=== PATIENT | male | born 1955 | race Caucasian/White ===

== ENCOUNTER → 2018-09-05 | Outpatient (REF) ==
[2017-07-20 17:00] VITALS: BMI 47.3
[~2018-09-05] MED LIST: ALLO-119 PO; ASPI-757 PO; ATEN-1 PO; CHOL10005 PO; CITA-145 PO; CITA-157 PO; CLON-331 PO; CYCL10TA29 PO; DOCU-202 PO; DOXY-229 PO; DOXY50SY2 PO; FAMO-67 PO; FURO-45 PO; FURO-47 PO; GABA-549 PO; GLY5 FT; GLY5 PO; HYDR-2966 PO; HYDR25TA66 PO; IBUP-136 PO; INSU100I30 SUBQ; LISI-362 PO; LOR1 PO; LOR5/325 PO; METF-450 PO; METF-452 PO; METO100T20 PO; METO50TA19 PO; NAPR220C12 PO; ONDA-2 PO; SIMV-49 PO; TRAM-420 PO; ZOLP-350 PO; [UNRECOGNIZED DRUG - CODE] IJ; [UNRECOGNIZED DRUG - CODE] PO
== END ==
LOC: US 01:00
PROVIDERS: ATTEND Nurse Practitioner
DX: I51.7 Cardiomegaly (principal)
CPT/HCPCS: 93306

== ENCOUNTER 2018-09-12 13:25 | Outpatient (RCR) ==
[2017-07-20 17:00] VITALS: Ht 182.9 cm; Wt 182.3 kg
[~2018-09-12] VITALS: Ht 182.9 cm; Wt 182.3 kg
--- NOTE | 2018-09-13 10:48 | Medical Nutrition Therapy ---
Nutrition Anthropometrics Height (Inches): 72 Weight (Pounds): 402 BMI: 54.5 Hemal Nutrition Score: Hemal Nutrition Risk Score: Dietary Referral Nutrition Risk Factors: Non-Healing Wound Nutrition Risk Comment: Nutrition/Food History has not been following any diet for his diet- trying to 'watch' carbs Breakfast: coffee creamer, 2 sausage mc muffin or cereal/ 12 oz milk Lunch: hungery man TV dinner or meat, 1c starch, vegg, 12oz milk Dinner: meat, salad, 12 oz milk Snacks: 2 pc fruit Nutritional Education Nutrition Education Topic: Diabetic Nutrition Learning Readiness: Interested Teaching Methods: Discussion, Handout, Demonstration Response to Teaching: Verbalize understanding, Reinforcement needed Teaching Recipient: Patient Nutrition Counseling: late entry for 09/12: Discussed diabetes distress and pt's issues with diabetes. Pt states interested in information on portion control. Discussed glycemic response to CHO and action of insulin with meal intake vs basal insulin. Discussed CHO counting and plate method. Pt not interested in CHO counting and feels portion control is his main issue at this time. Provided meal plan using plate method. Pt will eat unlimited non-starchy veg and lean meats. Pt will try to limit dairy, starchy foods, fruits to 2- 2 1/2c/meal. Informed pt that this is a starting point and he may need a larger serving size r/t to his body size but since he desires wt loss, went with a smaller portion size. Pt needed to leave d/t another appointment but set f/u time 09/26 where we will set up behavoural goals, support plan, and schedule classes. Nutrition Monitoring & Eval RD Patient Assessment Time: 60 minutes Nutritional Comment: Provided 60 minutes of diabetes education focusing on diabetes distress and nutrition. Copies To Copies to: [facility] ; MARIA DEL CARMEN GUERRERO Sep 13, 2018 10:48
--- NOTE | 2018-09-27 19:07 | Medical Nutrition Therapy ---
Nutrition Anthropometrics Height (Inches): 72 Weight (Pounds): 402 BMI: 54.5 Hemal Nutrition Score: Hemal Nutrition Risk Score: Dietary Referral Nutrition Risk Factors: Non-Healing Wound Nutrition Risk Comment: Nutritional Education Nutrition Education Topic: Diabetic Nutrition Learning Readiness: Interested Teaching Methods: Discussion, Handout Response to Teaching: Verbalize understanding Teaching Recipient: Patient Nutrition Counseling: Pt has been following plate method diet and states it has been working fairly well for him. Reviewed portion control and reviewed foods that increase Bg and foods that don't. pt set up support plan and made initial behavioural goal of lowering A1C to 7 from current 9 within a year. this will be achieved by limining CH to 2c/meal and increaing veg and protein portions. Pt will attend core stengthening claseses 3X/week. Pt will exercise by walking 5 minute 3X/day. Discussed how wt loss will also help with achieving goal. Pt set up for classes on 10/11. Nutrition Monitoring & Eval RD Patient Assessment Time: [address] Assessment Type: RD Education Nutritional Comment: Provided 30 minutes of diabetes education focusing on nutrition, support plan and behavioural goals. Copies To Copies to: [facility]; ALEJANDRINA SMITH MD ; MARIA DEL CARMEN GUERRERO Sep 27, 2018 19:07
--- NOTE | 2018-10-11 20:54 | Medical Nutrition Therapy ---
Nutrition Anthropometrics Height (Inches): 72 Weight (Pounds): 402 BMI: 54.5 Hemal Nutrition Score: Hemal Nutrition Risk Score: Dietary Referral Nutrition Risk Factors: Non-Healing Wound Nutrition Risk Comment: Physical Findings Physical Appearance: Morbidly Obese 40+ Skin Appearance Skin Appearance: Edema Edema Location Modifier: Edema Location: Type of Edema: Degree of Edema: Gastrointestinal Symptoms GI Symtoms: Tube Present: Bowel Sounds: Recent Bowel Pattern: Stool Characteristics: Nutritional Education Nutrition Education Topic: Other Learning Barriers: Hx Of Non-Compliance Learning Readiness: Eager, Interested Teaching Methods: Discussion, Handout, Demonstration, Audiovisual Response to Teaching: Return demonstration Teaching Recipient: Patient Nutrition Monitoring & Eval RD Patient Assessment Time: [address] Assessment Type: RD Education Nutritional Comment: Provided 30 minutes of diabetes education focusing on nutrition, support plan and behavioural goals. 10/11/18 Pt diagnosed with T2DM approximately 10 years ago. States that A1c several months ago was 14%, but now has normalized. Pt instructed on Living with Diabetes topics including foot care, emt intermediate complications, exercise, hypoglycemia, sick day care, etc. Pt appears interested in diabetes topics and able to answer questions regarding topics covered. I personally spent a total of 90 minutes educating/counseling patient regarding diabetes self-management in a group setting. See education section and my note above for details. TAD JOHNSON Oct 11, 2018 20:54
--- NOTE | 2018-10-12 12:13 | Medical Nutrition Therapy ---
Nutritional Education Nutrition Education Topic: Diabetic Nutrition Learning Readiness: Interested Teaching Methods: Discussion, Handout, Demonstration Response to Teaching: Verbalize understanding Teaching Recipient: Patient Nutrition Counseling: Provided diabetic education in group setting focusing on nutrition. Reviewed role of CHO, protein and fat. Glycemic response to CHO and Glycemic index. Reviewed carb counting, plate method. Discussed pros/cons of alternative acceptable diets like Mediterranean, Weight Watchers, Atkins that could be discussed in more detail with individuals upon request. Reviewed Heart healthy diet. Reviewed reading labels. Discussed alcohol effects on diabetes and recommended limits. Discussed eating out and controlling BG. Nutrition Monitoring & Eval RD Patient Assessment Time: [address] Assessment Type: RD Education Nutritional Comment: Provided 60 minutes of diabetes education in a group setting focusing on nutrition Copies To Copies to: [facility] ; MARIA DEL CARMEN GUERRERO Oct 12, 2018 12:13
--- NOTE | 2018-10-12 12:17 | Medical Nutrition Therapy ---
Nutrition Monitoring & Eval RD Patient Assessment Time: [address] Assessment Type: RD Education Nutritional Comment: Note provided by Kalie Garcia: 10/11/18 Pt diagnosed with T2DM approximately 10 years ago. States that A1c several months ago was 14%, but now has normalized. Pt instructed on Living with Diabetes topics including foot care, superintendent container terminal complications, exercise, hypoglycemia, sick day care, etc. Pt appears interested in diabetes topics and able to answer questions regarding topics covered. Copies To Copies to: [facility] ; MARIA DEL CARMEN GUERRERO Oct 12, 2018 12:17
== END 2018-10-17 ==
LOC: DIET 13:25
PROVIDERS: ATTEND Internal Medicine Rheumatology
DX: E11.65 Type 2 diabetes mellitus with hyperglycemia (principal)
CPT/HCPCS: G0108; G0109

== ENCOUNTER 2018-10-26 15:10 | Outpatient (RCR) ==
[2017-07-20 17:00] VITALS: BMI 47.3
--- NOTE | 2018-10-26 16:22 | Medical Nutrition Therapy ---
Nutritional Education Nutrition Education Topic: Diabetic Nutrition Learning Readiness: Interested Teaching Methods: Discussion, Demonstration Response to Teaching: Verbalize understanding Teaching Recipient: Patient Nutrition Counselin Month follow-up. Pt has achied 2 out of his 3 task to help him with is goal of an A1C of 7. He is taking core strengthing classes 3 X/week. He increased his exercise more than his original goal by walking 5 min 3-4X/day. He has increased his veg and protein but is having difficulties cutting back on CHO and he hasn't been counting fruit as a CHO. Increased his CHO/meal to 3c but that will include his fruit. Pt states BG is 100-120 before meals and 150-160s after meal. Will cont with quarterly phone calls and f/u sessions as needed. Nutrition Monitoring & Eval RD Patient Assessment Time: [address] Assessment Type: RD Education Nutritional Comment: Provided 45 minutes diabetic follow-up. Copies To Copies to: [facility]; ALEJANDRINA SMITH MD ; MARIA DEL CARMEN GUERRERO Oct 26, 2018 16:22
== END 2018-11-30 ==
LOC: DIET 15:10
PROVIDERS: ATTEND Internal Medicine Rheumatology
DX: E11.9 Type 2 diabetes mellitus without complications (principal); R73.9 Hyperglycemia, unspecified
CPT/HCPCS: G0108

== ENCOUNTER 2019-01-14 17:28 | Emergency (ER) | payer SELFPAY ==
[2017-07-20 17:00] VITALS: Wt 190.5 kg
[~2019-01-14 17:28] MED LIST changes: -INSU100V24 SQ; -LISI20TA29 PO; -ONDA4TAB97 PO; -Tamsulosin Hcl PO; -VENL150C3 PO
--- NOTE | 2019-01-14 18:00 | ER Report ---
History and Physical Time Seen By MD: 18:00 Hx. of Stated Complaint: Pt. is currently dizzy. Also having diarrhea, and some bowel incontinence. Chronic wound on left ankle/foot. Known by wound care team at [facility]. Per EMS, BPs 200's/100's, BG 268 HPI/ROS CHIEF COMPLAINT: Dizziness, fever HISTORY OF PRESENT ILLNESS: 63-year-old type II diabetic, insulin-dependent brought in by EMS from home with dizziness( like going to pass out) and weakness. Patient's unable to care for himself anymore. Patient states she's been incontinent of stool/diarrhea 8 times in the last 24 hours. Wounds are being cared for by wound care clinic. She states his glucoses have been out of control for the last several days. Patient reports 2 courses of antibiotics for sinus infection and right ear infection which she finished. Patient notes fever today. He has a productive cough. Patient denies dysuria. Patient admits she's been confused and disoriented forgot to take his oral diabetic medication this morning. Patient divides his insulin into 4 separate doses throughout the day. He states beside taking his insulin. His glucoses have remained quite high over 400. Patient is O2 dependent wears 1 L at night and when he takes naps during the daytime. Patient's legs are notably soiled with stool. Patient states he followed by Dr. Corona at [facility] [place]. Patient describes his dizziness as the near-syncope sensation. EMS field stick glucose was 270. Patient is a large dressing over the medial aspect of his left great toe. REVIEW OF SYSTEMS: Respiratory: No cough, no dyspnea. Cardiovascular: No chest pain, no palpitations. Gastrointestinal: No vomiting, no abdominal pain. Musculoskeletal: No back pain. Allergies: Coded Allergies: Penicillins (Verified Allergy, Mild, Rash, 01/14/19) 07/12/17: Pt reports developing a rash with PCN, but has taken PCN and tolerated it as recently as 2016. Sulfa (Sulfonamide Antibiotics) (Verified Allergy, Mild, 01/14/19) Home Meds Active Scripts Hydrocodone Bit/Acetaminophen (HYDROCODON-ACETAMINOPHEN 5-325) 1 Each Tablet, 1 EACH PO Q4-6H PRN for PAIN, #12 TAKE ONE TABLET BY MOUTH EVERY 4-6 HOURS NEEDED FOR PAIN Prov:MICA COLLINS DO 01/14/19 Ondansetron Hcl (ZOFRAN) 4 Mg Tablet, 4 MG PO Q6H PRN for NAUSEA/VOMITING, #12 Prov:KARINAMICA Enoc DO 01/14/19 Insulin Glargine 100 Un/Ml Pen (LANTUS SOLOSTAR PEN) 100 Unit/1 Ml Insuln.pen, 20 UNIT SUBQ QDAY for diabetes, #1 BOX 3 Refills Prov:CHINA NATARJAAN MD 08/29/17 Cyclobenzaprine Hcl (CYCLOBENZAPRINE HCL) 10 Mg Tablet, 10 MG PO BID PRN for MUSCLE SPASMS, #60 TAB Prov:CHINA NATARAJAN MD 08/29/17 Gabapentin (GABAPENTIN) 300 Mg Capsule, 300 MG PO DIRECTED, #120 CAPSULE Take one capsule in the am and one capsule midday. Take 2 capsules at HS. Prov:CHINA NATARAJAN MD 08/29/17 Allopurinol (ZYLOPRIM) 300 Mg Tablet, 300 MG PO QDAY, #0 TAB TAKE 1 TABLET BY MOUTH EVERY DAY Prov:CHINA NATARAJAN MD 01/23/15 Reported Medications Cholecalciferol (Vitamin D3) (VITAMIN D3) 1,000 Unit Tablet, 1000 UNIT PO DAILY, TAB 07/11/17 Hydralazine Hcl (HYDRALAZINE HCL) 25 Mg Tablet, 25 MG PO BID, TAB 07/11/17 Citalopram Hydrobromide (CITALOPRAM HBR) 20 Mg Tablet, 20 MG PO QDAY, #5 TAB 07/11/17 Glyburide (GLYBURIDE) 5 Mg Tab, 10 MG PO BID, TAB 07/11/17 Simvastatin (SIMVASTATIN) 20 Mg Tablet, 20 MG PO HS, TAB 01/23/15 Aspirin (ASPIRIN) 325 Mg Tablet, 325 MG PO DAILY, TAB 01/23/15 Lisinopril (LISINOPRIL) 10 Mg Tablet, 10 MG PO QDAY 01/23/15 Discontinued Reported Medications Famotidine (FAMOTIDINE) 20 Mg Tablet, 20 MG PO QDAY, TAB 05/10/17 Discontinued Scripts Hydrocodone Bit/Acetaminophen (HYDROCODON-ACETAMINOPHEN 5-325) 1 Each Tablet, 1- 2 EACH PO Q4H PRN for PAIN, #20 TAB Prov:CHINA NATARAJAN MD 08/29/17 Docusate Sodium (DOCUSATE SODIUM) 100 Mg Capsule, 100 MG PO BID, #60 CAPSULE Prov:CHINA NATARAJAN MD 08/29/17 Past Medical/Surgical History (1) Diabetic Charcot foot Status: Chronic (2) Hx MRSA infection Status: Resolved (3) Diabetic foot ulcer Status: Chronic (4) Neuropathy Status: Chronic (5) Type 2 diabetes mellitus Status: Chronic (6) Depression with anxiety Status: Chronic (7) Hyperlipidemia Status: Chronic (8) Gout Status: Chronic Reviewed Nurses Notes: Yes Old Medical Records Reviewed: Yes Hx Smoking: No Smoking Status: Never Smoker Hx Substance Use Disorder: No Hx Alcohol Use: No Constitutional Vital Sign - Last 24 Hours 01/14/19 01/14/19 01/14/19 01/14/19 17:33 17:43 17:58 18:00 Temp 98.9 Pulse 90 83 96 Resp 20 31 17 B/P (MAP) 179/92 179/92 (121) 167/100 (122) Pulse Ox 86 91 O2 Delivery Room Air 01/14/19 01/14/19 01/14/19 01/14/19 18:13 18:36 18:43 18:58 Pulse 81 79 87 Resp 17 26 76 B/P (MAP) 176/80 (112) Pulse Ox 91 90 91 01/14/19 01/14/19 01/14/19 01/14/19 19:13 19:18 19:30 19:33 Pulse 80 82 ??? Resp 58 53 22 B/P (MAP) 165/67 (99) Pulse Ox 94 84 90 01/14/19 01/14/19 01/14/19 01/14/19 19:38 19:48 20:00 20:03 Pulse 86 82 Resp 26 132 B/P (MAP) 162/65 (97) Pulse Ox 88 94 O2 Flow Rate 2.0 01/14/19 01/14/19 01/14/19 20:18 20:33 20:38 Pulse 86 159 111 Pulse Ox 88 82 84 Physical Exam Auto signs stable, pulse ox 86% on room air. Patient wears 1 L supplemental O2 at night. Patient on 2 L to maintain saturations in the low 90s, afebrile General Appearance: The patient is alert, has no immediate need for airway protection and no current signs of toxicity. Alert and oriented 3. Notes mental fogginess but answers questions appropriately HEENT: Pupils equal and round no injection. Oropharynx without redness or exudate, mucous members are moist Respiratory: Chest is non tender, lungs are clear to auscultation. No wheezing or rails Cardiac: regular rate and rhythm, distant heart sounds Gastrointestinal: Abdomen is soft and non tender, no masses, bowel sounds normal. Musculoskeletal: Neck: Neck is supple and non tender. No lymphadenopathy Extremities have full range of motion and are non tender. Lower extremities are soiled with retained stool from incontinence of diarrhea, examination of his chr onic wound on the medial aspect of the 1st metatarsal. There is a large ulcer that is approximately 2-3 cm in diameter. There is good granulation tissue at the base. There is no signs of infection. There is some tissue around the periphery that could potentially be debrided. Wound care. Can proceed with that in the future. Skin: No rashes or lesions. DIFFERENTIAL DIAGNOSIS: After history and physical exam differential diagnosis was considered for altered mental status including but not limited to hypoglycemia, infectious process, electrolyte abnormality, head injury and intoxicants. Additionally,adult fever including but not limited to viral syndromes including influenza, urinary tract infection, pneumonia and sepsis. Medical Decision Making Data Points Result Diagram: 01/14/19184601/14/191846 Laboratory Hematology Test 01/14/19 18:47 01/14/19 18:53 Red Blood Count 5.35 M/uL (4.00-5.60) Mean Corpuscular Volume 85.1 fL (80.0-96.0) Mean Corpuscular Hemoglobin 27.9 pg (26.0-33.0) Mean Corpuscular Hemoglobin Concent 32.8 g/dL (32.0-36.0) Red Cell Distribution Width 15.5 % (11.5-14.5) Mean Platelet Volume 7.4 fL (7.2-11.1) Neutrophils (%) (Auto) 51.4 % (39.4-72.5) Lymphocytes (%) (Auto) 35.3 % (17.6-49.6) Monocytes (%) (Auto) 11.1 % (4.1-12.4) Eosinophils (%) (Auto) 1.7 % (0.4-6.7) Basophils (%) (Auto) 0.5 % (0.3-1.4) Nucleated RBC Relative Count (auto) 0.2 /100WBC Neutrophils # (Auto) 2.7 K/uL (2.0-7.4) Lymphocytes # (Auto) 1.8 K/uL (1.3-3.6) Monocytes # (Auto) 0.6 K/uL (0.3-1.0) Eosinophils # (Auto) 0.1 K/uL (0.0-0.5) Basophils # (Auto) 0.0 K/uL (0.0-0.1) Nucleated RBC Absolute Count (auto) 0.01 K/uL Sodium Level 136 mmol/L (137-145) Potassium Level 4.7 mmol/L (3.5-5.0) Chloride Level 102 mmol/L (98-107) Carbon Dioxide Level 24 mmol/L (22-30) Blood Urea Nitrogen 29 mg/dl (9-21) Creatinine 0.80 mg/dl (0.66-1.25) Glomerular Filtration Rate Calc > 60.0 Random Glucose 284 mg/dl (75-110) Lactate 1.7 mmol/L (0.7-2.1) Calcium Level 8.9 mg/dl (8.4-10.2) Total Bilirubin 0.5 mg/dl (0.2-1.3) Aspartate Amino Transf (AST/SGOT) 55 U/L (0-35) Alanine Aminotransferase (ALT/SGPT) 41 U/L (0-56) Alkaline Phosphatase 122 U/L (0-126) C-Reactive Protein 0.6 mg/dl (<1.0) Total Protein 7.0 g/dl (6.3-8.2) Albumin 4.1 g/dl (3.5-5.0) Acetone, Qualitative Negative Influenza Virus Type A (PCR) Negative (NEGATIVE) Influenza Virus Type B (PCR) Negative (NEGATIVE) Urine Color Yellow Urine Clarity Clear Urine pH 6.0 pH (4.8-9.5) Urine Specific [place] 1.022 Urine Protein Negative mg/dL (NEGATIVE) Urine Glucose (UA) 500 mg/dL (NEGATIVE) Urine Ketones Negative mg/dL (NEGATIVE) Urine Blood Negative (NEGATIVE) Urine Nitrite Negative (NEGATIVE) Urine Bilirubin Negative (NEGATIVE) Urine Urobilinogen Negative mg/dL (0.2-1.9) Urine Leukocyte Esterase Negative (NEGATIVE) Urine RBC <1 /HPF (0-2/HPF) Urine WBC <1 /HPF (0-5/HPF) Urine Squamous Epithelial Cells None /LPF (</=FEW) Urine Bacteria Negative /HPF (NONE-FEW) Urine Mucus None /HPF (NONE-FEW) Chemistry Test 01/14/19 18:47 01/14/19 18:53 White Blood Count 5.2 k/uL (4.5-11.0) Red Blood Count 5.35 M/uL (4.00-5.60) Hemoglobin 15.0 g/dL (14.0-18.0) Hematocrit 45.5 % (42.0-52.0) Mean Corpuscular Volume 85.1 fL (80.0-96.0) Mean Corpuscular Hemoglobin 27.9 pg (26.0-33.0) Mean Corpuscular Hemoglobin Concent 32.8 g/dL (32.0-36.0) Red Cell Distribution Width 15.5 % (11.5-14.5) Platelet Count 142 K/uL (150-450) Mean Platelet Volume 7.4 fL (7.2-11.1) Neutrophils (%) (Auto) 51.4 % (39.4-72.5) Lymphocytes (%) (Auto) 35.3 % (17.6-49.6) Monocytes (%) (Auto) 11.1 % (4.1-12.4) Eosinophils (%) (Auto) 1.7 % (0.4-6.7) Basophils (%) (Auto) 0.5 % (0.3-1.4) Nucleated RBC Relative Count (auto) 0.2 /100WBC Neutrophils # (Auto) 2.7 K/uL (2.0-7.4) Lymphocytes # (Auto) 1.8 K/uL (1.3-3.6) Monocytes # (Auto) 0.6 K/uL (0.3-1.0) Eosinophils # (Auto) 0.1 K/uL (0.0-0.5) Basophils # (Auto) 0.0 K/uL (0.0-0.1) Nucleated RBC Absolute Count (auto) 0.01 K/uL Glomerular Filtration Rate Calc > 60.0 Lactate 1.7 mmol/L (0.7-2.1) Calcium Level 8.9 mg/dl (8.4-10.2) Total Bilirubin 0.5 mg/dl (0.2-1.3) Aspartate Amino Transf (AST/SGOT) 55 U/L (0-35) Alanine Aminotransferase (ALT/SGPT) 41 U/L (0-56) Alkaline Phosphatase 122 U/L (0-126) C-Reactive Protein 0.6 mg/dl (<1.0) Total Protein 7.0 g/dl (6.3-8.2) Albumin 4.1 g/dl (3.5-5.0) Acetone, Qualitative Negative Influenza Virus Type A (PCR) Negative (NEGATIVE) Influenza Virus Type B (PCR) Negative (NEGATIVE) Urine Color Yellow Urine Clarity Clear Urine pH 6.0 pH (4.8-9.5) Urine Specific [place] 1.022 Urine Protein Negative mg/dL (NEGATIVE) Urine Glucose (UA) 500 mg/dL (NEGATIVE) Urine Ketones Negative mg/dL (NEGATIVE) Urine Blood Negative (NEGATIVE) Urine Nitrite Negative (NEGATIVE) Urine Bilirubin Negative (NEGATIVE) Urine Urobilinogen Negative mg/dL (0.2-1.9) Urine Leukocyte Esterase Negative (NEGATIVE) Urine RBC <1 /HPF (0-2/HPF) Urine WBC <1 /HPF (0-5/HPF) Urine Squamous Epithelial Cells None /LPF (</=FEW) Urine Bacteria Negative /HPF (NONE-FEW) Urine Mucus None /HPF (NONE-FEW) Toxicology Test 01/14/19 18:47 Acetone, Qualitative Negative Urinalysis Test 01/14/19 18:53 Urine Color Yellow Urine Clarity Clear Urine pH 6.0 pH (4.8-9.5) Urine Specific [place] 1.022 Urine Protein Negative mg/dL (NEGATIVE) Urine Glucose (UA) 500 mg/dL (NEGATIVE) Urine Ketones Negative mg/dL (NEGATIVE) Urine Blood Negative (NEGATIVE) Urine Nitrite Negative (NEGATIVE) Urine Bilirubin Negative (NEGATIVE) Urine Urobilinogen Negative mg/dL (0.2-1.9) Urine Leukocyte Esterase Negative (NEGATIVE) Urine RBC <1 /HPF (0-2/HPF) Urine WBC <1 /HPF (0-5/HPF) Urine Squamous Epithelial Cells None /LPF (</=FEW) Urine Bacteria Negative /HPF (NONE-FEW) Urine Mucus None /HPF (NONE-FEW) EKG/Imaging EKG Interpretation 12 lead EK Rhythm: normal sinus rhythm [place]: normal QRS: normal ST segments: normal, no evidence of ischemia or dysrhythmia, old inferior Q waves, comparison to previous EKG 07/11/17, no significant morphologic change Imaging X-ray: Single view portable x-ray was obtained. I viewed the images myself on the PACS system. My interpretation of the images is: No infiltrate, no eff usion, cardiomegaly., Comparison to previous chest x-ray dated 07/11/17, no significant change. The radiologist interpretation had no clinically significant variation from this interpretation. Results: CT scan of the head without contrast was obtained. The results of the study are no acute findings. The study was read by the radiologist. I viewed the images myself on the PACS system. ED Course/Re-evaluation Clinical Indication for ER IV: Hydration, IV Access ED Course Patient was admitted to an examination room. H&P was done. The differential diagnoses was considered. On clinical examination. Patient with symptoms that appear as acute labyrinthitis. He has increased nausea with rapid head movement. Diagnostic studies were extensive. CAT scan of the head was unremarkable. His diagnostic laboratory studies were unremarkable. Patient responded well to Zofran and meclizine. Patient with diarrhea. He is advised clear liquid diet. He is given Zofran to control his nausea. He is advised to meclizine. Patient's advised to follow-up with primary care if unimproved in 3- 5 days. Patient was fairly insistent on being admitted. Although there is no admitting diagnosis for him. She claims she is unable to care for himself at home. Unfortunately there are no beds available at the hospital at this time. I did discuss the option of transfer with him. But with no specific admitting diagnosis. He is unlikely to be accepted for transfer to another facility. Patient's advised to go home and follow up with primary care early this week. Patient was medicated with regular insulin 10 units subcutaneous to bring down his mildly elevated glucose of 284. 01/14/2019 9:08:26 pm became more nauseous when they moved him over to the CAT scan table. Patient likely has acute labyrinthitis. He'll be treated with mecl izine and Zofran. Decision to Disposition Date: Jan 14, 2019 Decision to Disposition Time: 21:08 Depart Departure Latest Vital Signs Vital Signs Date Time Temp Pulse Resp B/P (MAP) Pulse Ox O2 Delivery O2 Flow Rate FiO2 01/14/19 20:38 111 84 01/14/19 20:03 132 01/14/19 20:00 162/65 (97) 01/14/19 19:38 2.0 01/14/19 17:33 98.9 Room Air Impression: Primary Impression: Dizziness Additional Impressions: Acute labyrinthitis Diarrhea Insulin-requiring or dependent type II diabetes mellitus Condition: Improved Disposition: HOME OR SELF-CARE Referrals: RANI SIMMS (PCP) New Scripts Hydrocodone Bit/Acetaminophen (HYDROCODON-ACETAMINOPHEN 5-325) 1 Each Tablet 1 EACH PO Q4-6H PRN for PAIN, #12 TAKE ONE TABLET BY MOUTH EVERY 4-6 HOURS NEEDED FOR PAIN Prov: MICA COLLINS DO 01/14/19 Ondansetron Hcl (ZOFRAN) 4 Mg Tablet 4 MG PO Q6H PRN for NAUSEA/VOMITING, #12 Prov: MICA COLLINS DO 01/14/19 Patient Instructions: Acute Diarrhea (ED), Clear Liquid Diet (ED), Labyrinthitis (ED) Additional Instructions: Take meclizine 25 mg 3 times daily to control your dizziness Use Zofran as needed for nausea control Follow clear liquid diet stop your diarrhea Follow-up with her primary care doctor if unimproved in 3-5 days Problem Qualifiers Additional Impressions: Acute labyrinthitis Laterality: bilateral Qualified Codes: H83.03 - Labyrinthitis, bilateral Diarrhea Diarrhea type: unspecified type Qualified Codes: R19.7 - Diarrhea, unspecified MICA COLLINS DO Jan 14, 2019 18:00
[2019-01-14] MEDS ORDERED: NS(*) 0.9% 1000 ML BAG 1,000 ML IV ONE (18:09)
[2019-01-14] MEDS ORDERED: ONDANSETRON 4 MG/2 ML VIAL IVP ONE ×2 (19:10→21:05)
[2019-01-14] MEDS ORDERED: CYCLOBENZAPRINE HCL 10 MG TAB PO ONE (19:20)
[2019-01-14 19:22] LABS: PLATELET COUNT, AUTOMATED 142 K/uL (150-450)
[2019-01-14 20:00] VITALS: BP 162/65
--- NOTE | 2019-01-14 21:04 | RADIOLOGY IMAGING REPORT ---
FACILITY: [facility] PATIENT NAME: Álvaro Vazquez : 1955 MR: [id number] V: [id number] EXAM DATE: ORDERING PHYSICIAN: MICA COLLINS TECHNOLOGIST: Location: [facility] [place] Patient: Álvaro Vazquez : 1955 Visit/Account:[id number] Date of Sevice: 01/14/2019 CHEST SINGLE AP Indication: Chest pain and fever.. Comparison: 07/11/2017. Findings: Cardiac silhouette is upper limits normal for size for the technique and rotation. Mediastinal silho uette and pulmonary vessels within normal limits. There is no focal infiltrate or lobar consolidation. No pneumothorax or pleural effusion. No nodule. Upper abdomen is unremarkable. No acute bony abnormality. IMPRESSION: 1. No acute cardiopulmonary process. Report Dictated By: Pravin Aaron at 01/14/2019 8:58 PM Report E-Signed By: Pravin Aaron at 01/14/2019 9:00 PM WSN:[id number]
[2019-01-14] MEDS ORDERED: MECLIZINE HCL 25 MG TAB PO ONE (21:05)
[2019-01-14] MEDS ORDERED: ONDANSETRON 4 MG/2 ML VIAL ONE (21:06)
[2019-01-14] MEDS ORDERED: ONDA4TAB97 PO (21:29)
--- NOTE | 2019-01-14 21:46 | RADIOLOGY IMAGING REPORT ---
FACILITY: [facility] - [place] PATIENT NAME: Álvaro Vazquez : 1955 MR: [id number] V: [id number] EXAM DATE: ORDERING PHYSICIAN: MICA COLLINS TECHNOLOGIST: Location: [facility] - [place] Patient: Álvaro Vazquez : 1955 Visit/Account:[id number] Date of Sevice: 01/14/[address]: Indication: Fever. Technique: Contiguous axial sections were obtained from the base to the vertex without contrast enhan cement. One of the following dose optimization techniques was utilized in the performance of this exam: Autom ated exposure control; adjustment of the mA and/or kV according to the patient's size; or use of an i terative reconstruction technique. Specific details can be referenced in the facility's radiology CT exam operational policy. Comparison: None available. Findings: There is no evidence of intra-axial or extra-axial hemorrhage. There is diffuse hypodensity in the periventricular white matter, most likely related to chronic microvascular disease. No focal areas of decreased or increased attenuation are identified. There is no evidence of mass, edema, or s hift of the midline structures. The size, shape, and configuration of the ventricular system are norm al. The skeletal structures are intact and unremarkable. The paranasal sinuses and mastoid air cells are clear. Impression: No evidence of hemorrhage, mass, or other acute process. Report Dictated By: Jaiden Ansari MD at 01/14/2019 9:30 PM Report E-Signed By: Jaiden Ansari MD at 01/14/2019 9:42 PM WSN:[id number]
[2019-01-14] MEDS ORDERED: INSU HUM REG 100 U/ML(ER ONLY) 10 ML VIAL SUBQ ONE (21:55)
[2019-01-14] MEDS ORDERED: LOR5/325 PO (21:57)
[2019-01-14] MEDS ORDERED: ONDANSETRON 4 MG ODT TH SL ONE (22:00)
[2019-01-14] MEDS ORDERED: MECLIZINE HCL 12.5 MG TAB TH PO ONE (22:00)
[2019-01-14] MEDS ORDERED: LOPERAMIDE HCL 2 MG PO ONE (22:05)
--- NOTE | 2019-01-14 22:23 | EKG ---
FACILITY: [facility] - [place] PATIENT NAME: CHEPE HUFFMAN : [id number] MR: [id number] V: [id number] EXAM DATE: ORDERING PHYSICIAN: MICA COLLINS TECHNOLOGIST: HC Test Reason : dizziness Blood Pressure : / mmHG Vent. Rate : 076 BPM Atrial Rate : 076 BPM P-R Int : 150 ms QRS Dur : 100 ms QT Int : 400 ms P-R-T Axes : 000 -06 070 degrees QTc Int : 450 ms Normal sinus rhythm Inferior infarct (cited on or before 20-MAR-2015) Abnormal ECG When compared with ECG of 11-JUL-2017 14:24, No significant change was found Confirmed by Roverto Duarte ([id number]) on 01/15/2019 12:29:33 AM Referred By: KARINA Confirmed By:Roverto Martinez
== END 2019-01-14 22:20 | disposition home or self-care (01) ==
LOC: ER 18:02
DX: R42 Dizziness and giddiness (principal); H83.03 Labyrinthitis, bilateral; R19.7 Diarrhea, unspecified; E11.9 Type 2 diabetes mellitus without complications; Z79.4 Long term (current) use of insulin
CPT/HCPCS: 36415; 70450; 71045; 81001; 82009; 83605; 85025; 86140; 87040; 87088; 87502; 93005; 96361; 96374; 96376; 99284; J2405; J7030; J8597; S0119; 82040; 82247; 82310; 82374; 82435; 82565; 82947; 84075; 84132; 84155; 84295; 84450; 84460; 84520; 96372; J1815

== ENCOUNTER → 2019-01-14 | Outpatient (CLI) | payer SELFPAY ==
[~2019-01-14] MED LIST changes: +INSU100V24 SQ; +LISI20TA29 PO; +ONDA4TAB97 PO; +Tamsulosin Hcl PO; +VENL150C3 PO
[2019-01-17 08:17] VITALS: BMI 80.7
== END ==
LOC: AMB 16:30
PROVIDERS: ATTEND Nurse Practitioner
DX: R42 Dizziness and giddiness (principal); R53.1 Weakness
CPT/HCPCS: A0425; A0427

== ENCOUNTER 2019-01-16 17:46 | Observation (INO) | payer SELFPAY ==
[~2019-01-16] VITALS: Ht 152.4 cm; Wt 187.3 kg
[~2019-01-16 17:46] MED LIST changes: -INSU100V24 SQ; -LISI20TA29 PO; -Tamsulosin Hcl PO; -VENL150C3 PO
[2019-01-16] MEDS ORDERED: NS(*) 0.9% 500 ML BAG 500 ML IV ONE (18:25)
[2019-01-16] MEDS ORDERED: MORPHINE 4 MG/ML SDV IVP ONE (18:25)
--- NOTE | 2019-01-16 18:42 | ER Report ---
History and Physical Time Seen By MD: 18:05 Hx. of Stated Complaint: AMS ON SCENE, LOW 02. ULCER ON L FOOT. FELL LAST NIGHT AND HAS LARGE ABRASION L CHEST. DENIES LOC OR HEAD INJURY. GENERALIZED PAIN AND SWELLING. HPI/ROS CHIEF COMPLAINT: fall, foot pain, hypoxia, failure to thrive HISTORY OF PRESENT ILLNESS: 63-year-old diabetic presents to days after last ED visit. At that point he was sent home after thorough evaluation showed no clear instability. Since this time, patient has essentially been bedridden. He atte mpted to ambulate around the house but broke his walker, falling over it, striking his left upper chest, causing contusion. The walker has since been inoperable. Patient has since been in bed. He has had multiple episodes of loose stool and has had bowel and bladder incontinence. He has no home health care and no family. He complains of dehydration as he has not been able to eat or drink, of continued vertigo which is part of the presentation 2 days ago, of nausea, loose stools the last was last night, and continued foot swelling on left greater than right. Patient also complains of depression though he is not suicidal, and is seeking help for this. He states that he is unable to care for himself due to his physical inability get around as well as his mental depression. Per EMS, patient was found to have O2 sat of 81% upon their arrival, he is on O2 CPAP for sleep apnea at night but had not been administering prior to arrival. He was also found to be hyperglycemic in the 280s but took his long- acting insulin just prior to arrival. REVIEW OF SYSTEMS: Constitutional: No fever, no chills. Eyes: no blurred vision ENT: ongoing sore throat, left ear pain Cardiovascular: No chest pain, no palpitations. Respiratory: mild dyspnea Gastrointestinal: No abdominal pain, no vomiting. Nausea as above Genitourinary: urinary and fecal incontinence Musculoskeletal: lower extremity pain as above Skin: lower extremity erythema, left foot ulcer Neurological: vertigo, mild headache Remainder of the 14 system rev: Yes Allergies: Coded Allergies: Penicillins (Verified Allergy, Mild, Rash, 01/14/19) 07/12/17: Pt reports developing a rash with PCN, but has taken PCN and tolerated it as recently as 2016. Sulfa (Sulfonamide Antibiotics) (Verified Allergy, Mild, 01/14/19) Home Meds Active Scripts Hydrocodone Bit/Acetaminophen (HYDROCODON-ACETAMINOPHEN 5-325) 1 Each Tablet, 1 EACH PO Q4-6H PRN for PAIN, #12 TAKE ONE TABLET BY MOUTH EVERY 4-6 HOURS NEEDED FOR PAIN Prov:MICA COLLINS DO 01/14/19 Ondansetron Hcl (ZOFRAN) 4 Mg Tablet, 4 MG PO Q6H PRN for NAUSEA/VOMITING, #12 Prov:MICA COLLINS DO 01/14/19 Insulin Glargine 100 Un/Ml Pen (LANTUS SOLOSTAR PEN) 100 Unit/1 Ml Insuln.pen, 20 UNIT SUBQ QDAY for diabetes, #1 BOX 3 Refills Prov:CHINA NATARAJAN MD 08/29/17 Cyclobenzaprine Hcl (CYCLOBENZAPRINE HCL) 10 Mg Tablet, 10 MG PO BID PRN for MUSCLE SPASMS, #60 TAB Prov:CHINA NATARAJAN MD 08/29/17 Gabapentin (GABAPENTIN) 300 Mg Capsule, 300 MG PO DIRECTED, #120 CAPSULE Take one capsule in the am and one capsule midday. Take 2 capsules at HS. Prov:CHINA NATARAJAN MD 08/29/17 Allopurinol (ZYLOPRIM) 300 Mg Tablet, 300 MG PO QDAY, #0 TAB TAKE 1 TABLET BY MOUTH EVERY DAY Prov:CHINA NATARAJAN MD 01/23/15 Reported Medications Cholecalciferol (Vitamin D3) (VITAMIN D3) 1,000 Unit Tablet, 1000 UNIT PO DAILY, TAB 07/11/17 Hydralazine Hcl (HYDRALAZINE HCL) 25 Mg Tablet, 25 MG PO BID, TAB 07/11/17 Citalopram Hydrobromide (CITALOPRAM HBR) 20 Mg Tablet, 20 MG PO QDAY, #5 TAB 07/11/17 Glyburide (GLYBURIDE) 5 Mg Tab, 10 MG PO BID, TAB 07/11/17 Simvastatin (SIMVASTATIN) 20 Mg Tablet, 20 MG PO HS, TAB 01/23/15 Aspirin (ASPIRIN) 325 Mg Tablet, 325 MG PO DAILY, TAB 01/23/15 Lisinopril (LISINOPRIL) 10 Mg Tablet, 10 MG PO QDAY 01/23/15 Discontinued Reported Medications Famotidine (FAMOTIDINE) 20 Mg Tablet, 20 MG PO QDAY, TAB 05/10/17 Discontinued Scripts Hydrocodone Bit/Acetaminophen (HYDROCODON-ACETAMINOPHEN 5-325) 1 Each Tablet, 1- 2 EACH PO Q4H PRN for PAIN, #20 TAB Prov:CHINA NATARAJAN MD 08/29/17 Docusate Sodium (DOCUSATE SODIUM) 100 Mg Capsule, 100 MG PO BID, #60 CAPSULE Prov:CHINA NATARAJAN MD 08/29/17 Reviewed Nurses Notes: Yes Old Medical Records Reviewed: Yes Hx Smoking: No Smoking Status: Never Smoker Hx Substance Use Disorder: No Hx Alcohol Use: No Constitutional Vital Sign - Last 24 Hours 01/16/19 01/16/19 01/16/19 01/16/19 17:46 17:52 17:58 18:16 Temp 99.0 Pulse ??? 81 80 Resp 25 8 B/P (MAP) 137/85 (102) 137/85 Pulse Ox 92 94 O2 Delivery Nasal Cannula 01/16/19 01/16/19 01/16/19 01/16/19 18:30 18:45 18:46 19:07 Pulse 88 Resp 16 B/P (MAP) 135/69 (91) 146/114 (125) 150/88 (108) Pulse Ox 96 01/16/19 01/16/19 19:15 19:16 Pulse 85 Resp 28 B/P (MAP) 140/90 (107) Pulse Ox 95 Physical Exam General Appearance: The patient is alert, has no immediate need for airway protection and no signs of toxicity. Eyes: Pupils equal and round no pallor or injection. No nystagmus TM's clear bilaterally ENT, Mouth: mucous membranes dry. OP patent Respiratory: There are no retractions, lungs are clear to auscultation. Cardiovascular: Regular rate and rhythm. no m/r/g Chest wall - large 8x10cm ecchymosis, left lower chest wall with central linear abrasion of 10cm. No laceration. No deep ttp. Gastrointestinal: Abdomen is soft and non tender, no masses, bowel sounds arabella l. Neurological: alert, oriented x 4, moves all ext, cn ii-xii intact Skin: left foot erythematous 3x3 cm ulceration on plantar surface at base of left great toe. Impacted with feces. No purulent drainage. Feces throughout both legs Musculoskeletal: upper extremities, full range of motion. No deformity RLE; LLE with foot angulated laterally, no obvious deformity DIFFERENTIAL DIAGNOSIS: After history and physical exam differential diagnosis was considered for sepsis, chf, acs, cellulitis, cva, electrolyte disorder, dka, hnnk, uti, or other emergent cause of presentation Medical Decision Making Data Points Result Diagram: 01/16/19181901/16/190 Laboratory Hematology Test 01/16/19 18:20 Red Blood Count 5.23 M/uL (4.00-5.60) Mean Corpuscular Volume 85.9 fL (80.0-96.0) Mean Corpuscular Hemoglobin 28.3 pg (26.0-33.0) Mean Corpuscular Hemoglobin Concent 33.0 g/dL (32.0-36.0) Red Cell Distribution Width 15.6 % (11.5-14.5) Mean Platelet Volume 7.5 fL (7.2-11.1) Neutrophils (%) (Auto) 59.9 % (39.4-72.5) Lymphocytes (%) (Auto) 30.0 % (17.6-49.6) Monocytes (%) (Auto) 9.4 % (4.1-12.4) Eosinophils (%) (Auto) 0.3 % (0.4-6.7) Basophils (%) (Auto) 0.4 % (0.3-1.4) Nucleated RBC Relative Count (auto) 0.1 /100WBC Neutrophils # (Auto) 4.0 K/uL (2.0-7.4) Lymphocytes # (Auto) 2.0 K/uL (1.3-3.6) Monocytes # (Auto) 0.6 K/uL (0.3-1.0) Eosinophils # (Auto) 0.0 K/uL (0.0-0.5) Basophils # (Auto) 0.0 K/uL (0.0-0.1) Nucleated RBC Absolute Count (auto) 0.01 K/uL Erythrocyte Sedimentation Rate 5 mm/HOUR (0-20) Sodium Level 133 mmol/L (137-145) Potassium Level 5.3 mmol/L (3.5-5.0) Chloride Level 98 mmol/L (98-107) Carbon Dioxide Level 29 mmol/L (22-30) Blood Urea Nitrogen 36 mg/dl (9-21) Creatinine 1.20 mg/dl (0.66-1.25) Glomerular Filtration Rate Calc > 60.0 Random Glucose 190 mg/dl (75-110) Lactate 2.2 mmol/L (0.7-2.1) Calcium Level 9.5 mg/dl (8.4-10.2) Magnesium Level 2.0 mg/dl (1.7-2.2) Total Bilirubin 0.6 mg/dl (0.2-1.3) Aspartate Amino Transf (AST/SGOT) 72 U/L (0-35) Alanine Aminotransferase (ALT/SGPT) 84 U/L (0-56) Alkaline Phosphatase 83 U/L (0-126) C-Reactive Protein 1.1 mg/dl (<1.0) B-Type Natriuretic Peptide 352 pg/ml (0-100) Total Protein 6.9 g/dl (6.3-8.2) Albumin 4.1 g/dl (3.5-5.0) Chemistry Test 01/16/19 18:20 White Blood Count 6.7 k/uL (4.5-11.0) Red Blood Count 5.23 M/uL (4.00-5.60) Hemoglobin 14.8 g/dL (14.0-18.0) Hematocrit 44.9 % (42.0-52.0) Mean Corpuscular Volume 85.9 fL (80.0-96.0) Mean Corpuscular Hemoglobin 28.3 pg (26.0-33.0) Mean Corpuscular Hemoglobin Concent 33.0 g/dL (32.0-36.0) Red Cell Distribution Width 15.6 % (11.5-14.5) Platelet Count 146 K/uL (150-450) Mean Platelet Volume 7.5 fL (7.2-11.1) Neutrophils (%) (Auto) 59.9 % (39.4-72.5) Lymphocytes (%) (Auto) 30.0 % (17.6-49.6) Monocytes (%) (Auto) 9.4 % (4.1-12.4) Eosinophils (%) (Auto) 0.3 % (0.4-6.7) Basophils (%) (Auto) 0.4 % (0.3-1.4) Nucleated RBC Relative Count (auto) 0.1 /100WBC Neutrophils # (Auto) 4.0 K/uL (2.0-7.4) Lymphocytes # (Auto) 2.0 K/uL (1.3-3.6) Monocytes # (Auto) 0.6 K/uL (0.3-1.0) Eosinophils # (Auto) 0.0 K/uL (0.0-0.5) Basophils # (Auto) 0.0 K/uL (0.0-0.1) Nucleated RBC Absolute Count (auto) 0.01 K/uL Erythrocyte Sedimentation Rate 5 mm/HOUR (0-20) Glomerular Filtration Rate Calc > 60.0 Lactate 2.2 mmol/L (0.7-2.1) Calcium Level 9.5 mg/dl (8.4-10.2) Magnesium Level 2.0 mg/dl (1.7-2.2) Total Bilirubin 0.6 mg/dl (0.2-1.3) Aspartate Amino Transf (AST/SGOT) 72 U/L (0-35) Alanine Aminotransferase (ALT/SGPT) 84 U/L (0-56) Alkaline Phosphatase 83 U/L (0-126) C-Reactive Protein 1.1 mg/dl (<1.0) B-Type Natriuretic Peptide 352 pg/ml (0-100) Total Protein 6.9 g/dl (6.3-8.2) Albumin 4.1 g/dl (3.5-5.0) EKG/Imaging EKG Interpretation 12 lead EKG: Rhythm: normal sinus rhythm [place]: normal QRS: normal ST segments: normal Q in lead III, unchanged from prior Monitor Interpretation: Normal Sinus Rhythm ED Course/Re-evaluation ED Course 63-year-old male presents to days after ED visit who in the meantime has essentially been bedridden due to both physical and mental incapacity. As previously, patient has hyperglycemia without evidence of DKA, fecal and urinary incontinence due to inability to ambulate to bathroom, and diabetic foot ulcer. We have cleaned him, bandaged ulcer, there is not sign of acute osteomyelitis at this point. Patient does not have resources or capability to care for himself at home. Will admit to hospital for further monitoring and determination of appropriate placement. Decision to Disposition Date: Jan 16, 2019 Decision to Disposition Time: 20:32 Depart Departure Latest Vital Signs Vital Signs Date Time Temp Pulse Resp B/P (MAP) Pulse Ox O2 Delivery O2 Flow Rate FiO2 01/16/19 19:16 85 28 95 01/16/19 19:15 140/90 (107) 01/16/19 17:58 99.0 Nasal Cannula Impression: Primary Impression: Hyperglycemia Additional Impression: Failure to thrive in adult Condition: Improved Disposition: HOME OR SELF-CARE Referrals: ANALI VELAZQUEZ MD (PCP) Problem Qualifiers SENG HODGE MD Jan 16, 2019 18:41
[2019-01-16 18:52] LABS: PLATELET COUNT, AUTOMATED 146 K/uL (150-450)
--- NOTE | 2019-01-16 18:57 | EKG ---
FACILITY: [facility] - [place] PATIENT NAME: CHEPE HUFFMAN : [id number] MR: [id number] V: [id number] EXAM DATE: ORDERING PHYSICIAN: SENG HODGE TECHNOLOGIST: Test Reason : Dyspnea Blood Pressure : / mmHG Vent. Rate : 076 BPM Atrial Rate : 076 BPM P-R Int : 186 ms QRS Dur : 102 ms QT Int : 350 ms P-R-T Axes : 059 068 075 degrees QTc Int : 393 ms Sinus rhythm with fusion complexes Inferior infarct (cited on or before 20-MAR-2015) Abnormal ECG When compared with ECG of 14-JAN-2019 21:22, fusion complexes are now present QT has shortened Confirmed by Roverto Duarte ([id number]) on 01/17/2019 12:08:48 AM Referred By: Confirmed By:Roverto Martinez
[2019-01-16] MEDS ORDERED: ONDANSETRON 4 MG/2 ML VIAL IVP ONE (19:00)
--- NOTE | 2019-01-16 20:18 | RADIOLOGY IMAGING REPORT ---
FACILITY: [facility] PATIENT NAME: Álvaro Vazquez : 1955 MR: [id number] V: [id number] EXAM DATE: ORDERING PHYSICIAN: SENG HODGE TECHNOLOGIST: Location: [facility] - [place] Patient: Álvaro Vazquez : 1955 Visit/Account:[id number] Date of Sevice: 01/16/2019 CHEST SINGLE AP Indication: Dyspnea.. Comparison: 01/14/2019. Findings: Cardiac silhouette remains enlarged but unchanged. Mediastinal silhouette and pulmonary vessels with in normal limits. There is no focal infiltrate or lobar consolidation. No pneumothorax or pleural effusion. No nodule. Chronic interstitial changes. Upper abdomen is unremarkable. No acute bony abnormality. IMPRESSION: 1. Stable mildly enlarged cardiac silhouette without edema or infiltrate. Report Dictated By: Pravin Aaron at 01/16/2019 8:13 PM Report E-Signed By: Pravin Aaron at 01/16/2019 8:14 PM WSN:[id number]
--- NOTE | 2019-01-16 20:52 | RADIOLOGY IMAGING REPORT ---
[place] [facility] [place] NAME: Álvaro Vazquez : 1955 MR: [id number] V: [id number] EXAM DATE: ORDERING PHYSICIAN: SENG HODGE TECHNOLOGIST: Location: [facility] [place] Patient: Álvaro Vazquez : 1955 Visit/Account:[id number] Date of Sevice: 01/16/2019 INDICATION: Swollen, bruising, blistered foot. DATE: 01/16/2019 8:46 PM. TECHNIQUE: FOOT 3 VIEW LEFT COMPARISON: None FINDINGS: There is a large soft tissue defect at the level of the first MTP joint with hallux valgus angulation. No definite underlying erosion. Pes planus. There has been resection of the third metatar brendan shaft. Deformity of the second metatarsal shaft is chronic and either from old trauma and/or surg darvin. In the phalanges of the second toe have been resected. There is diffuse soft tissue edema at the foot and ankle. Large plantar calcaneal heel spur. IMPRESSION: Large soft tissue defect at the level of the first MTP joint. No definite findings of osteomyelitis. Extensive chronic findings as noted. Report Dictated By: Karrie Villagran MD at 01/16/2019 8:46 PM Report E-Signed By: Karrie Villargan MD at 01/16/2019 8:48 PM WSN:[id number]
[2019-01-16 22:00] VITALS: BP 146/82
[2019-01-16] MEDS ORDERED: INSU100V24 SQ (22:19)
[2019-01-16] MEDS ORDERED: METF-452 PO (22:19)
[2019-01-16] MEDS ORDERED: INFLUENZA VIRUS VAC 0.5ML SYR IM ONLY ONE (23:40)
[2019-01-16] MEDS ORDERED: FLUSH 10 ML SYR IVP PRN (23:40)
[2019-01-16] MEDS ORDERED: NS(*) 0.9% 1000 ML BAG 1,000 ML IV PRN (23:40)
--- NOTE | 2019-01-17 | History & Physical ---
History of Present Illness Chief Complaint inability to care for self History of Present Illness 63M presented with complaint of not able to care for self. PMHx significant for morbid obesity, HTN, DM, NIKKI. Was seen in ER 2 days ago and found to be safe to ambulate, no acute process going on. Reports went home and been bedridden since. Broke walker because too weak to get around while using it and was found in bed in urine and stool. Patient reports he has been covered in fecal material for 4 days due to diarrhea. No acute process identified but recommended for admission due to report of inability to care for self. History Problems: (1) Type 2 diabetes mellitus Status: Chronic (2) Morbid obesity Status: Chronic Home Meds Active Scripts Hydrocodone Bit/Acetaminophen (HYDROCODON-ACETAMINOPHEN 5-325) 1 Each Tablet, 1 EACH PO Q4-6H PRN for PAIN, #12 TAKE ONE TABLET BY MOUTH EVERY 4-6 HOURS NEEDED FOR PAIN Prov:MICA COLLINS DO 01/14/19 Ondansetron Hcl (ZOFRAN) 4 Mg Tablet, 4 MG PO Q6H PRN for NAUSEA/VOMITING, #12 Prov:MICA COLLINS Enoc DO 01/14/19 Insulin Glargine 100 Un/Ml Pen (LANTUS SOLOSTAR PEN) 100 Unit/1 Ml Insuln.pen, 20 UNIT SUBQ QDAY for diabetes, #1 BOX 3 Refills Prov:CHINA NATARAJAN MD 08/29/17 Cyclobenzaprine Hcl (CYCLOBENZAPRINE HCL) 10 Mg Tablet, 10 MG PO BID PRN for MUSCLE SPASMS, #60 TAB Prov:CHINA NATARAJAN MD 08/29/17 Gabapentin (GABAPENTIN) 300 Mg Capsule, 300 MG PO DIRECTED, #120 CAPSULE Take one capsule in the am and one capsule midday. Take 2 capsules at HS. Prov:CHINA NATARAJAN MD 08/29/17 Allopurinol (ZYLOPRIM) 300 Mg Tablet, 300 MG PO QDAY, #0 TAB TAKE 1 TABLET BY MOUTH EVERY DAY Prov:CHINA NATARAJAN MD 01/23/15 Reported Medications Insulin Lispro 100 Un/Ml Vial (HUMALOG 100 U/ML VIAL) 100 Unit/1 Ml Vial, 0 SQ, VIAL 01/16/19 Metformin Hcl (METFORMIN HCL) 1,000 Mg Tablet, 1 TAB PO BID, TAB 01/16/19 Cholecalciferol (Vitamin D3) (VITAMIN D3) 1,000 Unit Tablet, 1000 UNIT PO DAILY, TAB 07/11/17 Hydralazine Hcl (HYDRALAZINE HCL) 25 Mg Tablet, 25 MG PO BID, TAB 07/11/17 Citalopram Hydrobromide (CITALOPRAM HBR) 20 Mg Tablet, 20 MG PO QDAY, #5 TAB 07/11/17 Simvastatin (SIMVASTATIN) 20 Mg Tablet, 20 MG PO HS, TAB 01/23/15 Aspirin (ASPIRIN) 325 Mg Tablet, 325 MG PO DAILY, TAB 01/23/15 Lisinopril (LISINOPRIL) 10 Mg Tablet, 10 MG PO QDAY 01/23/15 Discontinued Reported Medications Glyburide (GLYBURIDE) 5 Mg Tab, 10 MG PO BID, TAB 07/11/17 Famotidine (FAMOTIDINE) 20 Mg Tablet, 20 MG PO QDAY, TAB 05/10/17 Discontinued Scripts Hydrocodone Bit/Acetaminophen (HYDROCODON-ACETAMINOPHEN 5-325) 1 Each Tablet, 1- 2 EACH PO Q4H PRN for PAIN, #20 TAB Prov:CHINA NATARAJAN MD 08/29/17 Docusate Sodium (DOCUSATE SODIUM) 100 Mg Capsule, 100 MG PO BID, #60 CAPSULE Prov:CHINA NATARAJAN MD 08/29/17 Allergies: Coded Allergies: Penicillins (Verified Allergy, Mild, Rash, 01/14/19) 07/12/17: Pt reports developing a rash with PCN, but has taken PCN and tolerated it as recently as 2016. Sulfa (Sulfonamide Antibiotics) (Verified Allergy, Mild, 01/14/19) Patient History: CHF (congestive heart failure) MOTHER FH: heart attack FATHER, Hx Smoking: No Smoking Status: Never Smoker Caffeine Intake: Coffee, Tea Caffeine/Cups Per Day: 6 cups/day Hx Alcohol Use: Yes Hx Substance Use Disorder: No Review of Systems All Systems Reviewed/Normal: Yes, Except as Noted Neurological: Weakness Gastrointestinal: Diarrhea Exam Vital Signs Vital Signs Date Time Temp Pulse Resp B/P (MAP) Pulse Ox O2 Delivery O2 Flow Rate FiO2 01/16/19 21:15 144/79 (100) 01/16/19 20:56 87 88 01/16/19 19:51 17 01/16/19 17:58 99.0 Nasal Cannula General Appearance: Alert, Awake, No Acute Distress, Afebrile Neuro: No Gross deficits ENT: Normal Cardiovascular: Normal Rhythm & Peripheral Pulses Respiratory: No Respiratory Distress GI: Abd Soft and Non-Tender Musculoskeletal: No Weakness/Pain (5/5 muscle strength b/l UE and LE) Extremities: Soft and Non Tender, Warm, Pulses, Perfused Medical Decision Making Data Points Result Diagram: 01/16/19181901/16/191819 Assessment and Plan Problems: (1) Failure to thrive in adult Status: Chronic Assessment & Plan: Reportedly unable to care for self at home and appearance in ER seems to confirm this. Social work consulted to see if any resources are av ailable to him. (2) Type 2 diabetes mellitus Status: Chronic Assessment & Plan: Continue long acting insulin. Accuchecks ACHS. (3) Morbid obesity Status: Chronic Assessment & Plan: Largest contributor to poor functional status. (4) Diarrhea Status: Acute Assessment & Plan: Will give hydration and monitor. Likely viral gastroenteritis. No blood or mucous noted. Venous Thromboembolism Antithrombotics Is Pt On Any Antithrombotics?: Yes Exam Sepsis Risk: No Definite Risk CRISTÓBAL POPE DO Jan 17, 2019 00:00
[2019-01-17 03:14] VITALS: BP 126/82
[2019-01-17 07:43] VITALS: BP 155/100
[2019-01-17] MEDS: INSULIN HUM LISPRO 100 UN/ML 3 ML VIAL SUBQ PRN ×4 (08:12→21:24)
[2019-01-17 08:17] VITALS: Ht 152.4 cm; Wt 187.3 kg
[2019-01-17] MEDS: ENOXAPARIN 40 MG/0.4ML SYR SC SCH (10:08)
[2019-01-17] MEDS: CITALOPRAM HYDROBROM 20 MG TAB PO SCH (10:08)
[2019-01-17] MEDS: GABAPENTIN 300 MG CAP PO SCH ×2 (10:08→21:19)
[2019-01-17] MEDS: hydrALAZINE HCL 25 MG TAB PO SCH ×2 (10:09→21:19)
[2019-01-17] MEDS: LISINOPRIL 10 MG TAB PO SCH (10:09)
[2019-01-17] MEDS: ALLOPURINOL 300 MG TAB PO SCH (10:09)
--- NOTE | 2019-01-17 10:24 | Hospitalist Progress Note ---
Subjective Progress Notes Subjective This patient was admitted for failure to thrive. He had no acute events overnight. Patient Complains of: Cardiovascular: No: Chest Pain Respiratory: No: Shortness of Breath Physical Exam Vital Signs Date Time Temp Pulse Resp B/P (MAP) Pulse Ox O2 Delivery O2 Flow Rate FiO2 01/17/19 07:43 155/100 (118) 01/17/19 06:45 97.7 81 20 91 Nasal Cannula 3.5 Intake and Output 01/17/19 07:00 Intake Total 700 ml Output Total 600 ml Balance 100 ml Intake Oral 200 ml IV Total 500 ml Output Urine Total 600 ml # Voids 2 Cardiovascular: Regular Rate and Rhythm Respiratory: Clear to Auscultation Result Diagram: 01/16/19181901/16/191819 Monitor Interpretation: Normal Sinus Rhythm Assessment and Plan Problems: (1) Failure to thrive in adult Status: Chronic Assessment & Plan: It is reported that he is no longer able to care for himself in the home. Social work and [facility] have been consulted. (2) Type 2 diabetes mellitus Status: Chronic Assessment & Plan: He is on chronic treatment with Lantus and Humalog. The metformin was discontinued secondary to lactic acidosis. He is currently on sliding scale level #2. (3) Diarrhea Status: Acute Assessment & Plan: He has not had any recurrence since admission. (4) Lactic acidosis Assessment & Plan: His metformin has been discontinued. (5) Morbid obesity with BMI of 70 and over, adult Exam Sepsis Risk: No Definite Risk PALAK TINEO DO Jan 17, 2019 10:24
--- NOTE | 2019-01-17 11:04 | Medical Nutrition Therapy ---
Nutrition Anthropometrics Height (Inches): 60.00 Height (Calculated Centimeters: 152.075540 Weight (Pounds): 413 Weight (Calculated Kilograms): 187.475 BMI: 80.7 Hemal Nutrition Score: Probably Inadequate Hemal Nutrition Risk Score: 15 Dietary Referral Nutrition Risk Factors: Non-Healing Wound Nutrition Risk Comment: Physical Findings Physical Appearance: Morbidly Obese 40+ Skin Appearance Skin Appearance: Edema Edema Location Modifier: Both Edema Location: Upper Extremity Type of Edema: Degree of Edema: 1+ Gastrointestinal Symptoms GI Symtoms: Change in Bowel Pattern Tube Present: Bowel Sounds: Recent Bowel Pattern: Stool Characteristics: Nutritional Diagnosis Nutritional Risk Acuity 1: Fail to Thrive Nutritional Risk Acuity 2: Abcess/Non-Healing Wound Nutritional Risk Acuity 3: Morbid Obesity Nutritional Risk Acuity 4: Good Appetite Past Medical History: 07/12 Pt has hx of Hypercholesterolemia, T2DM, DM foot ulcer, Charcot joint, Neuropathy,Hyperlipidemia and gout, morbid obesity, DMT2. Nutritional Acuity: 2-Moderate Nutrition Diagnosis: Excessive Food Intake, Inappropriate Carb Intake Nutrition Etiology: Physiological Causes Nutrition Problem/Etiology/Sym: Excessive food and inappropriate carb intake related to physiological causes as evidenced by BMI 80.7, elevated WBG (81-161) and RBG (190). Energy Requirement: 3305 (MSJ 1.1 TEF, 1.2 AF) Adjusted Energy Requirement Re: 1465 (ABW for MSJ, 1.1 TEF, 1.2 AF) Protein Requirement: 94 (0.5 g AA/kg of BW) Fluid Requirement: 1465 (1ml/kcal of adjusted kcal needs) Diet Type: Diabetic Nutrition Intervention: Cont diet as ordered, Check glucose Diet Comment To RSA: Offer high protein foods. Nutrition Monitoring & Eval Nutrition Goals: Eat 50-100% Meal, Drink > 1200 cc/day RD Patient Assessment Time: [address] Assessment Type: RD Screen Patient Nutrition Acuity: 1-High Follow Up Date: Jan 19, 2019 Nutritional Comment: 01/17: Pt dx with failure to thrive, DMT2, morbid obesity, and diarrhea. Failure to trive dx probably related to morbid obesity (BMI 80) and inability to self care. Pt has hx of Hypercholesterolemia, T2DM, DM foot ulcer, Charcot joint, Neuropathy,Hyperlipidemia and gout, morbid obesity, DMT2. Pt is on enoxaparin (anticoagulant). Pt has decresed sodium (133) levels. Pt has increased potassium (5.3), BUN (36), RBG (190), WBG (81-161), c-reactive protein (1.1), and b-natriuretic peptid (352). Pt is on a diabetetic diet with no intake reported. administration intern talked to pt, pt expressed that he did not want verbal diabetes education however he was interested in diabetes handout education, process engineering intern left handout. -CARISA MATA Jan 17, 2019 08:26
[2019-01-17] MEDS: ASPIRIN 325 MG TAB PO SCH (11:28)
[2019-01-17 11:38] VITALS: BP 144/87
--- NOTE | 2019-01-17 14:29 | NUR ---
Physical Therapy Impression PT/OT co-eval completed for pt safety. Pt tolerated ambulation with FWW from far side of bed to doorway, and back. Pt did experience one episode of unsteady sensation when turning at doorway, but with CGA from PT and cues to take a rest break and turn slowly, pt was able to stabilize and return to sitting at edge of bed. Physical Therapy Goals 1. Pt to be modified indep with bed mobility and supine<>sit trnsfrs 2. Pt to be modified indep with sit<>stand transfers with FWW 3. Pt to ambulate x 100' with FWW and proper energy conservation techniques 4. Pt to kaitlynn up/down 2 platform steps with FWW and CGA/SBA Patient's Goals
[2019-01-17 15:24] VITALS: BP 125/78
--- NOTE | 2019-01-17 15:29 | NUR ---
Occupational Therapy Impression CGA ambulation in room with RW. Mod A sit to supine. SpO2 85% on 4L. Pt reports no concerns with PLOF and how things were going at home. Discharge planning notes indicate outside resources having concerns with current function at home. Pt progressing well with mobility for (I) with ADLs. Rec HomeHealth pending concerns being addressed with discharge planning. Occupational Therapy Goals 1) Pt will be Mod (I) LB dressing. 2) Pt will be SBA toilet task. 3) Pt will be SBA grooming. Patient's Goal
--- NOTE | 2019-01-17 16:50 | NUR ---
Physical Therapy Impression PT wound eval: Pt reports a history of non-compliance with use of diabetic foot wear and off loading. This wound was previously healed when pt had restricted mobility in Jul 2017, but upon his return home from [facility] he began walking again without his diabetic shoes and reopened this site. Pt notes that he has been seen at [facility] for wound care and some debridement as needed. Pt also indicates that his blood sugars have been somewhat high and he is "working on that". Pt's best option for healing at this time, would be total contact casting to prevent weight bearing on this area. This could be accomplished through an out patient clinic, however, pt is currently private pay, and this option may be cost prohibitive. Physical Therapy Goals 1. Pt to be modified indep with bed mobility and supine<>sit trnsfrs 2. Pt to be modified indep with sit<>stand transfers with FWW 3. Pt to ambulate x 100' with FWW and proper energy conservation techniques 4. Pt to kaitlynn up/down 2 platform steps with FWW and CGA/SBA Patient's Goals
[2019-01-17 18:49] VITALS: BP 122/79
[2019-01-17 21:17] VITALS: BP 154/93
[2019-01-17] MEDS: SIMVASTATIN 20 MG TAB PO SCH (21:20)
[2019-01-17] MEDS: INSULIN GLARGINE 100 U/ML 3 ML PEN SUBQ SCH (21:23)
[2019-01-18 01:29] VITALS: BP 160/90
[2019-01-18] MEDS: INSULIN HUM LISPRO 100 UN/ML 3 ML VIAL SUBQ PRN ×4 (08:01→21:25)
[2019-01-18 08:03] VITALS: BP 152/83
[2019-01-18 08:26] LABS: PLATELET COUNT, AUTOMATED 129 K/uL (150-450)
--- NOTE | 2019-01-18 09:37 | Hospitalist Progress Note ---
Subjective Progress Notes Subjective He was admitted for failure to thrive. He had no acute events overnight. Patient Complains of: Cardiovascular: No: Chest Pain Respiratory: No: Shortness of Breath Physical Exam Vital Signs Date Time Temp Pulse Resp B/P (MAP) Pulse Ox O2 Delivery O2 Flow Rate FiO2 01/18/19 08:03 98.4 74 18 152/83 (106) 92 Nasal Cannula 5.0 Intake and Output 01/18/19 07:00 Intake Total 600 ml Output Total 4135 ml Balance -3535 ml Intake Oral 600 ml Output Urine Total 4135 ml # Voids 2 # Bowel Movements 1 General Appearance: Alert, Awake, No Acute Distress, Afebrile Neuro: No Gross deficits Cardiovascular: Regular Rate and Rhythm Respiratory: No Respiratory Distress, Clear to Auscultation Psych: Alert & Oriented X3, Appropriate Mood & Affect Result Diagram: 01/18/19 0809 01/18/19 0809 Monitor Interpretation: Normal Sinus Rhythm Assessment and Plan Problems: (1) Failure to thrive in adult Status: Chronic Assessment & Plan: It is reported that he is no longer able to care for himself in the home. Social work and TCN have been consulted. (2) Diabetic foot ulcer Status: Chronic Assessment & Plan: He has a chronic wound that has reopened. He has not been wearing his diabetic shoes at home. Wound care has been consulted. (3) Type 2 diabetes mellitus Status: Chronic Assessment & Plan: He is on chronic treatment with Lantus and Humalog. The metformin was discontinued secondary to lactic acidosis, now improved. He is currently on sliding scale level #2. (4) Diarrhea Status: Acute Assessment & Plan: He has not had any recurrence since admission. (5) Lactic acidosis Assessment & Plan: His metformin has been discontinued. (6) Morbid obesity with BMI of 70 and over, adult Exam Sepsis Risk: No Definite Risk Problem Qualifiers (1) Diabetic foot ulcer: Diabetic foot ulcer location: midfoot Diabetes mellitus type: type 2 Laterality: left Non-pressure ulcer stage: unspecified non-pressure ulcer stage Qualified Codes: E11.621 - Type 2 diabetes mellitus with foot ulcer; L97.429 - Non-pressure chronic ulcer of left heel and midfoot with unspecified severity JANET HSU Jan 18, 2019 09:37
[2019-01-18] MEDS: LISINOPRIL 10 MG TAB PO SCH (10:09)
[2019-01-18] MEDS: guaiFENesin 600 MG TABCR PO SCH ×2 (10:09→21:24)
[2019-01-18] MEDS: GABAPENTIN 300 MG CAP PO SCH ×2 (10:09→21:24)
[2019-01-18] MEDS: CITALOPRAM HYDROBROM 20 MG TAB PO SCH (10:10)
[2019-01-18] MEDS: hydrALAZINE HCL 25 MG TAB PO SCH ×2 (10:10→21:24)
[2019-01-18] MEDS: ENOXAPARIN 40 MG/0.4ML SYR SC SCH (10:11)
[2019-01-18] MEDS: ASPIRIN 325 MG TAB PO SCH (10:11)
[2019-01-18] MEDS: ALLOPURINOL 300 MG TAB PO SCH (10:11)
--- NOTE | 2019-01-18 14:33 | NUR ---
Physical Therapy Impression Pt is functionally able to transfer in/out of bed, rise from bedside and W/C and ambulate with FWW. CGA and W/C follow provided to ensure pt remains successful with progress. No losses of balance were noted and pt was then able to complete up/down one platform step with rail on L) upon return ambulation to room. During pt's previous short-term subacute rehab stay he had been strongly encouraged to have a rail placed at his stairs prior to d/c home. Pt now states that the never had this installed and does not feel the need for it. Pt is at his prior level of function and from a mobility standpoint, could likely return home. Pt does, however, have other complicating factors including depression, and difficulty managing his blood sugars. Discharge planning is addressing his possible placement needs to ensure improved care overall versus return home with increased assistance. Pt reports a history of non-compliance with use of diabetic foot wear and off loading. This wound was previously healed when pt had restricted mobility in Jul 2017, but upon his return home from [facility] he began walking again without his diabetic shoes and reopened this site. Pt notes that he has been seen at [facility] for wound care and some debridement as needed. Pt also indicates that his blood sugars have been somewhat high and he is "working on that". Pt's best option for healing at this time, would be total contact casting to prevent weight bearing on this area. This could be accomplished through an out patient clinic, however, pt is currently private pay, and this option may be cost prohibitive. Physical Therapy Goals 1. Pt to be modified indep with bed mobility and supine<>sit trnsfrs 2. Pt to be modified indep with sit<>stand transfers with FWW 3. Pt to ambulate x 100' with FWW and proper energy conservation techniques 4. Pt to kaitlynn up/down 2 platform steps with FWW and CGA/SBA Patient's Goals
[2019-01-18 15:35] VITALS: BP 136/80
--- NOTE | 2019-01-18 15:44 | NUR ---
Occupational Therapy Impression CGA ambulation in hallway with RW. (See PT note for details). Declined toileting. Independent sit to supine. SpO2 WNL on 4L. Recommend discharge home with HH services. Pt reporting desire for increased assist with self-cares. Discharge planning involved. Occupational Therapy Goals 1) Pt will be Mod (I) LB dressing. 2) Pt will be SBA toilet task. 3) Pt will be SBA grooming. Patient's Goal
[2019-01-18 19:25] VITALS: BP 127/69
[2019-01-18] MEDS: SIMVASTATIN 20 MG TAB PO SCH (21:24)
[2019-01-18] MEDS: MELATONIN 3 MG TAB PO SCH (21:24)
[2019-01-18] MEDS: INSULIN GLARGINE 100 U/ML 3 ML PEN SUBQ SCH (21:25)
[2019-01-19 00:26] VITALS: BP 148/0
--- NOTE | 2019-01-19 08:12 | Medical Nutrition Therapy ---
Nutrition Anthropometrics Height (Inches): 60.00 Height (Calculated Centimeters: 152.828890 Weight (Pounds): 413 Weight (Calculated Kilograms): 187.475 BMI: 80.7 Hemal Nutrition Score: Adequate Hemal Nutrition Risk Score: 18 Dietary Referral Nutrition Risk Factors: Non-Healing Wound Nutrition Risk Comment: Physical Findings Physical Appearance: Morbidly Obese 40+ Skin Appearance Skin Appearance: Edema Edema Location Modifier: Both Edema Location: Upper Extremity Type of Edema: Degree of Edema: 2+ Gastrointestinal Symptoms GI Symtoms: Change in Bowel Pattern Tube Present: Bowel Sounds: Recent Bowel Pattern: Stool Characteristics: Nutritional Diagnosis Nutritional Risk Acuity 1: Fail to Thrive Nutritional Risk Acuity 2: Abcess/Non-Healing Wound Nutritional Risk Acuity 3: Morbid Obesity Nutritional Risk Acuity 4: Good Appetite Past Medical History: 07/12 Pt has hx of Hypercholesterolemia, T2DM, DM foot ulcer, Charcot joint, Neuropathy,Hyperlipidemia and gout, morbid obesity, DMT2. Nutritional Acuity: 2-Moderate Nutrition Diagnosis: Excessive Food Intake, Inappropriate Carb Intake Nutrition Etiology: Physiological Causes Nutrition Problem/Etiology/Sym: Excessive food and inappropriate carb intake related to physiological causes as evidenced by BMI 80.7, elevated WBG (81-161) and RBG (190). Energy Requirement: 3305 (MSJ 1.1 TEF, 1.2 AF) Adjusted Energy Requirement Re: 1465 (ABW for MSJ, 1.1 TEF, 1.2 AF) Protein Requirement: 94 (0.5 g AA/kg of BW) Fluid Requirement: 1465 (1ml/kcal of adjusted kcal needs) Diet Type: Diabetic Nutrition Intervention: Cont diet as ordered, Check glucose Diet Comment To RSA: Offer high protein foods. Nutrition Monitoring & Eval Nutrition Goals: Eat 50-100% Meal, Drink > 1500 cc/day Nutrition Follow-Up: Good Intake Nutrition Monitoring: Pt is consuming 100% of meals. RD Patient Assessment Time: [address] Assessment Type: RD Assessment Patient Nutrition Acuity: 1-High Follow Up Date: Jan 22, 2019 Nutritional Comment: 01/17: Pt dx with failure to thrive, DMT2, morbid obesity, and diarrhea. Failure to trive dx probably related to morbid obesity (BMI 80) and inability to self care. Pt has hx of Hypercholesterolemia, T2DM, DM foot ulcer, Charcot joint, Neuropathy,Hyperlipidemia and gout, morbid obesity, DMT2. Pt is on enoxaparin (anticoagulant). Pt has decresed sodium (133) levels. Pt has increased potassium (5.3), BUN (36), RBG (190), WBG (81-161), c-reactive protein (1.1), and b-natriuretic peptid (352). Pt is on a diabetetic diet with no intake reported. grad intern talked to pt, pt expressed that he did not want verbal diabetes education however he was interested in diabetes handout education, grad intern left handout. -JJ 01/19/19 pt has a diabetic foot ulcer, and lactic acidosis in addition to FTT, T2DM, and morbid obesity. Pt has 2+ pitting edema in BLE and non-pitting edema in both upper extremities. Whole blood glucose has ranged from 193-228, and random glucose was 209. Pt is on enoxaparin and insulin. Pt is consuming 100% of ADA diet. RD and grad intern attempted education of 01/17/19. Pt refused but management intern left a handout on the diabetic diet with pt. Continue to monitor for adequate intakes and offer high protein foods due to foot ulcer. -AMBER CABRERA Jan 19, 2019 08:12
[2019-01-19] MEDS: INSULIN HUM LISPRO 100 UN/ML 3 ML VIAL SUBQ PRN ×4 (08:31→21:00)
[2019-01-19 08:32] VITALS: BP 143/89
[2019-01-19] MEDS: hydrALAZINE HCL 25 MG TAB PO SCH ×2 (09:13→20:59)
[2019-01-19] MEDS: ALLOPURINOL 300 MG TAB PO SCH (09:13)
[2019-01-19] MEDS: ASPIRIN 325 MG TAB PO SCH (09:13)
[2019-01-19] MEDS: ENOXAPARIN 40 MG/0.4ML SYR SC SCH (09:13)
[2019-01-19] MEDS: guaiFENesin 600 MG TABCR PO SCH ×2 (09:13→20:58)
[2019-01-19] MEDS: GABAPENTIN 300 MG CAP PO SCH ×2 (09:14→20:58)
[2019-01-19] MEDS: LISINOPRIL 10 MG TAB PO SCH (09:14)
[2019-01-19] MEDS: CITALOPRAM HYDROBROM 20 MG TAB PO SCH (09:14)
[2019-01-19] MEDS: HYPROMELLOSE 0.4% LUB 15ML BTL OD PRN ×2 (09:16→21:00)
--- NOTE | 2019-01-19 10:20 | NUR ---
Physical Therapy Impression PT addressed pt's concerns regarding discharge planning with regard to his physical capabilities. This PT is unable to speak to his mental capacity, medical understanding of diet teaching and medication management or his mental health. Pt reminded that he has been consistently indep with bed mobility and transfers as well as ambulation both within room during nursing assist and in hallway with PT/OT visit yesterday. Pt also completed a platform step with use of rail and demos the functional ability to meet his physical needs in the home environment. PT is thus recommending d/c home with [facility] services and potentially increased services if available for IADL's. Pt, however, feels that he requires further support at this time primarily for emotional needs, including depression and proper medication management etc. This was evident, when during discussion, pt removed his nasal canula to take a bite of food, and chose to leave it off. O2 sat monitor indicated SpO2 less than 85% and pt was encouraged to put O2 back on. Pt stated that it got in the way of eating, and did not seem to comprehend that currently the supplemental oxygen is necessary. Pt did place it back on when encouraged by PT. Pt voices that he would also like a psych consult and has been tearful during some periods of the day. This information was passed on in SBAR with pt's nurse and with TCN who is attempting to coordinate an appropriately supportive discharge plan for Casimiro. Pt encouraged to speak with TCN to allow them to make referrals for other long-term care/support options, per pt's indication that he feels he needs more assistance. Again, from a physical therapy stand point, his mobility and functional strength are quite good compared to his typical baseline on previous admissions. Note: Pt also states that he will only allow TCN to make a referral if he has time to get to know her personally and trust her, and that he does not want to work with the previous TCN that was trying to address his needs yesterday. Physical Therapy Goals 1. Pt to be modified indep with bed mobility and supine<>sit trnsfrs 2. Pt to be modified indep with sit<>stand transfers with FWW 3. Pt to ambulate x 100' with FWW and proper energy conservation techniques 4. Pt to kaitlynn up/down 2 platform steps with FWW and CGA/SBA Patient's Goals
--- NOTE | 2019-01-19 11:05 | NUR ---
Occupational Therapy Impression Pt demonstrates good tolerance for mobility but impulsive with decreased safety awareness requiring strict CGA and chair follow from OT. Ambulation in room with RW and CGA. Declined ADLs. Requesting OT put jelly on his toast because he is "shaking" due to anxiety and stress. Emotional support offered, pt declining further needs at this time. Rec home with HH. Pt requesting increased supports for ADLs/IADLs. Occupational Therapy Goals 1) Pt will be Mod (I) LB dressing. 2) Pt will be SBA toilet task. 3) Pt will be SBA grooming. Patient's Goal
--- NOTE | 2019-01-19 12:01 | Hospitalist Progress Note ---
Subjective Progress Notes Subjective He was admitted with failure to thrive at home. He reports feeling depressed today because he is not able to succeed at home. He is tearful. He has no complaints otherwise. Patient Complains of: Cardiovascular: No: Chest Pain Respiratory: No: Shortness of Breath Physical Exam Vital Signs Date Time Temp Pulse Resp B/P (MAP) Pulse Ox O2 Delivery O2 Flow Rate FiO2 01/19/19 09:05 92 Nasal Cannula 4.0 35.0 01/19/19 08:32 98.1 85 12 143/89 (107) Intake and Output 01/19/19 07:00 Intake Total 840 ml Output Total 3125 ml Balance -2285 ml Intake Oral 840 ml Output Urine Total 3125 ml # Voids 4 # Bowel Movements 2 General Appearance: Alert, Awake, No Acute Distress, Afebrile Neuro: No Gross deficits Cardiovascular: Regular Rate and Rhythm Respiratory: No Respiratory Distress, Clear to Auscultation Extremities: Warm, Perfused, Edema (2+pitting edema) Psych: Alert & Oriented X3, Other (appears sad, tearful) Result Diagram: 01/18/19 0809 01/18/19 0809 Monitor Interpretation: Normal Sinus Rhythm Assessment and Plan Problems: (1) Failure to thrive in adult Status: Chronic Assessment & Plan: It is reported that he is no longer able to care for himself in the home. Social work and TCN have been consulted. (2) Diabetic foot ulcer Status: Chronic Assessment & Plan: He has a chronic wound that has reopened. He has not been wearing his diabetic shoes at home. Wound care has been consulted. (3) Type 2 diabetes mellitus Status: Chronic Assessment & Plan: He is on chronic treatment with Lantus and Humalog. The metformin was discontinued secondary to lactic acidosis, now improved. He is currently on sliding scale level #2. (4) Diarrhea Status: Acute Assessment & Plan: He has not had any recurrence since admission. (5) Lactic acidosis Assessment & Plan: His metformin has been discontinued. (6) Morbid obesity with BMI of 70 and over, adult Exam Sepsis Risk: No Definite Risk Problem Qualifiers (1) Diabetic foot ulcer: Diabetic foot ulcer location: midfoot Diabetes mellitus type: type 2 Laterality: left Non-pressure ulcer stage: unspecified non-pressure ulcer stage Qualified Codes: E11.621 - Type 2 diabetes mellitus with foot ulcer; L97.429 - Non-pressure chronic ulcer of left heel and midfoot with unspecified severity JANET HSU Jan 19, 2019 12:01
[2019-01-19] MEDS: VENLAFAXINE XR 75 MG CAPCR PO SCH (14:19)
--- NOTE | 2019-01-19 14:37 | Psychiatric Consult ---
History of Present Illness Requesting Physician Roselyn Morris Reason for Consult: Psychiatric Illness Reason for Consult Anxiety History of Present Illness 63 y/o admitted to medicine with hyperglycemia, morbid obesity, failure to thrive, has complaint of chronic anxiety and depression. Currently on c italopram for past 5 years which has helped the depression but not the anxiety. He says he was formerly on Klonopin prn which was helpful, but his out-patient providers won't prescribe it. He understands potential abuse risks of benzo's. He describes generalized anxiety, comes and goes, not panic attacks, no OCD sx's. Denies depressed mood currently. Denies suicidal ideation. Patient Refused Consult: No [facility] - Subjective Progress Notes Subjective "It's the anxiety that gets to me." Suicidal Ideation: None Homicidal Ideation: None [facility] - Objective Mental Status Exam General Appearance: Casual, Good Eye Contact, Cooperative, Polite, Good Interaction, Other (obese) Speech: Clear, Spontaneous, Normal Rate, Normal Rhythm, Normal Volume, Normal Tone Mood: Euthymic Affect: Anxious (mildly) Thought Process: Organized, Logical, Goal Directed Thought Content: No Suicidal Ideation, No Homicidal Ideation, No Delusions, No Auditory Halllucinations, No Visual Hallucinations, No Thought Broadcasting, No Ideas of Reference, No Obsessions, No Compulsions, No Other Sensorium: Clear Cognition: Alert & Oriented-Person, Alert & Oriented-Place, Alert & Oriented- Time, [id number]-[id number] Memory: Immediate, Recent, Remote Intelligence: Average Insight Judgment: Fair Result Diagram: 01/18/19 0809 01/18/19 0809 [facility] Assessment and Plan [id number] Encounter Date: Jan 19, 2019 [id number] Encounter Time: 11:44 Follow Up Testing Recommended: No Problems: (1) Generalized anxiety disorder Assessment & Plan: recommend d/c citalopram and start effexor xr 75 mg q day. This SNRI will treat the anxiety better. Increase to 150 mg after a couple of days. Can continue to titrate up to 300 mg daily based on response. (2) Persistent depressive disorder Assessment & Plan: The effexor will control depression as well. Treatment Recommendation: Other (transfer to [facility]) Recommendation Details as above RHODA LOMELI MD Jan 19, 2019 14:37
[2019-01-19 15:29] VITALS: BP 157/79
[2019-01-19] MEDS: SALINE 0.65% NAS SPR 44 ML BTL PRN (15:37)
--- NOTE | 2019-01-19 15:57 | NUR ---
Physical Therapy Impression Pt notes that he is feeling better since speaking with a psychiatrist and having a shower. Pt agreeable to wound care and has his diabetic shoes here now. Non-excisional debridement completed with the use of tweezers to a depth of subcutaneous tissue in order to remove biofilm and non-viable tissue. Wound cleansed with sterile saline and treated with silver collagen matrix product, followed by silver calcium alginate for additional absorption and secured with bordered gauze pad. Pt instructed that he is to wear his diabetic shoes for any walking, including just to/from BR in order to off load wound site and begin to allow for some healing. Pt seemed surprised that just that little bit of walking could do damage and it is obvious that he does not wear his shoes when he is at home walking around his apartment. Pt instructed that this shoe is the only option that we currently have to provide that wound any relief and it must be worn with any walking. Physical Therapy Goals 1. Pt to be modified indep with bed mobility and supine<>sit trnsfrs 2. Pt to be modified indep with sit<>stand transfers with FWW 3. Pt to ambulate x 100' with FWW and proper energy conservation techniques 4. Pt to kaitlynn up/down 2 platform steps with FWW and CGA/SBA Patient's Goals
[2019-01-19 18:37] VITALS: BP 174/102
[2019-01-19] MEDS: MELATONIN 3 MG TAB PO SCH (20:58)
[2019-01-19] MEDS: SIMVASTATIN 20 MG TAB PO SCH (20:58)
[2019-01-19] MEDS: INSULIN GLARGINE 100 U/ML 3 ML PEN SUBQ SCH (20:59)
[2019-01-19 23:00] VITALS: BP 158/88
[2019-01-20 03:00] VITALS: BP 160/90
[2019-01-20] MEDS: CYCLOBENZAPRINE HCL 10 MG TAB PO PRN ×2 (04:48→17:09)
[2019-01-20 08:24] VITALS: BP 150/90
[2019-01-20] MEDS: INSULIN HUM LISPRO 100 UN/ML 3 ML VIAL SUBQ PRN ×4 (08:36→21:56)
[2019-01-20] MEDS: VENLAFAXINE XR 75 MG CAPCR PO SCH (08:38)
[2019-01-20] MEDS: TAMSULOSIN HCL 0.4 MG CAP PO SCH (08:38)
[2019-01-20] MEDS: GABAPENTIN 300 MG CAP PO SCH ×2 (08:38→21:39)
[2019-01-20] MEDS: guaiFENesin 600 MG TABCR PO SCH ×2 (08:40→21:39)
[2019-01-20] MEDS: hydrALAZINE HCL 25 MG TAB PO SCH ×2 (08:41→21:40)
[2019-01-20] MEDS: LISINOPRIL 10 MG TAB PO SCH (08:41)
[2019-01-20] MEDS: ASPIRIN 325 MG TAB PO SCH (08:41)
[2019-01-20] MEDS: ALLOPURINOL 300 MG TAB PO SCH (08:41)
[2019-01-20] MEDS: ENOXAPARIN 40 MG/0.4ML SYR SC SCH (08:44)
[2019-01-20] MEDS ORDERED: LISINOPRIL 10 MG TAB PO ONE (10:45)
--- NOTE | 2019-01-20 11:10 | Hospitalist Progress Note ---
Subjective Progress Notes Subjective No concerns from the patient and staff. He feels like he is improving. Physical Exam Vital Signs Date Time Temp Pulse Resp B/P (MAP) Pulse Ox O2 Delivery O2 Flow Rate FiO2 01/20/19 04:20 80 01/20/19 04:17 80 20 Nasal Cannula 4.0 01/20/19 03:00 160/90 (113) 35.0 01/19/19 23:00 98.0 Intake and Output 01/20/19 07:00 Intake Total 2480 ml Output Total 5190 ml Balance -2710 ml Intake Oral 2480 ml Output Urine Total 5190 ml # Voids 8 # Bowel Movements 1 General Appearance: Alert, Awake, No Acute Distress Result Diagram: 01/18/19 0809 01/18/19 0809 Monitor Interpretation: Normal Sinus Rhythm Assessment and Plan Problems: (1) Failure to thrive in adult Status: Chronic Assessment & Plan: It is reported that he is no longer able to care for himself in the home. Social work and TCN have been consulted. They are working on getting him to the [facility]. OT/PT are working with him. (2) Diabetic foot ulcer Status: Chronic Assessment & Plan: He has a chronic wound that has reopened. He has not been w earing his diabetic shoes at home. Wound care is following. (3) Type 2 diabetes mellitus Status: Chronic Assessment & Plan: He is on chronic treatment with Lantus and Humalog. The metformin was discontinued secondary to lactic acidosis, now improved. He is currently on sliding scale level #2. (4) Diarrhea Status: Acute Assessment & Plan: He has not had any recurrence since admission. (5) Lactic acidosis Assessment & Plan: His metformin has been discontinued. (6) Morbid obesity with BMI of 70 and over, adult Exam Sepsis Risk: No Definite Risk Problem Qualifiers (1) Diabetic foot ulcer: Diabetic foot ulcer location: midfoot Diabetes mellitus type: type 2 Laterality: left Non-pressure ulcer stage: unspecified non-pressure ulcer stage Qualified Codes: E11.621 - Type 2 diabetes mellitus with foot ulcer; L97.429 - Non-pressure chronic ulcer of left heel and midfoot with unspecified severity PEGGY YEAGER MD Jan 20, 2019 11:10
[2019-01-20 14:11] VITALS: BP 142/94
--- NOTE | 2019-01-20 14:40 | NUR ---
Physical Therapy Impression Pt was steady throughout ambulation, but talked during entire session. O2 on and increased with shortness of breath noted. After completion of 50' of gait with FWW, it was noted by PT that pt was doing very well and may be capable of returning home with this functional strength and ability. Pt then stated that he felt unsteady and "Might black out". Pt was seated in W/C which PT followed him with and after a brief rest break, used his own feet to propel the W/C back to his room without assistance of PT and without any increase in work of breathing or indications of difficulty. Pt then sat in W/C to discuss remainder of functional goals to address with nursing throughout the weekend, as pt has refused to d/c home and is wanting to consider [facility] assistance. Pt was instructed to wear his shoes at all times of walking to off load wound at L) great toe. Pt encouraged to ambulate to/from BR for voiding, but that if there was an urgent need, he could simulate this by voiding with the urinal and then ambulating to BR to empty it, with the assistance of nursing staff. Pt requests PT to modifiy custom made shoes to allow him to grasp velcro closure more effectively. Pt instructed that he needs to contact the company that provided the shoes for any modifications. Zaida does come to [place] regularly and will make housecalls for these modifications. Pt then requested PT to be present with TCN visit for d/c planning. Pt informed that PT goals have been met and that d/c planning encompasses more than just therapy needs. Pt will need to address his further concerns regarding care in the community with our TCN team. Pt then asked if he could [facility] for further wound care. Pt reminded that his PCP team is through the [facility] and they would have to determine what further specialist or care he might need, as they have been caring for this wound in a very appropriate manner until his hospitalization for gastroenteritis. PT goals met and no further visits planned at this time. Pt is to coordinate out pt care with TCN team and decide his discharge needs and disposition with them. Physical Therapy Goals 1. Pt to be modified indep with bed mobility and supine<>sit trnsfrs 2. Pt to be modified indep with sit<>stand transfers with FWW 3. Pt to ambulate x 100' with FWW and proper energy conservation techniques 4. Pt to kaitlynn up/down 2 platform steps with FWW and CGA/SBA Patient's Goals
[2019-01-20] MEDS: EUCALYPTUS/MENTHOL LOZ MM PRN ×3 (17:09→23:00)
[2019-01-20] MEDS: SIMVASTATIN 20 MG TAB PO SCH (21:39)
[2019-01-20] MEDS: INSULIN GLARGINE 100 U/ML 3 ML PEN SUBQ SCH (21:40)
[2019-01-20] MEDS: MELATONIN 3 MG TAB PO SCH (21:40)
[2019-01-20 23:30] VITALS: BP 133/88
--- NOTE | 2019-01-21 07:29 | Hospitalist Progress Note ---
Subjective Progress Notes Subjective He reports feeling "much sharper" this morning. Physical Exam Vital Signs Date Time Temp Pulse Resp B/P (MAP) Pulse Ox O2 Delivery O2 Flow Rate FiO2 01/20/19 23:30 97.9 100 20 133/88 (103) 92 Nasal Cannula 5.0 01/20/19 03:00 35.0 Intake and Output 01/21/19 06:59 Intake Total 2560 ml Output Total 5350 ml Balance -2790 ml Intake Oral 2560 ml Output Urine Total 5350 ml # Voids 7 # Bowel Movements 1 General Appearance: Alert, Awake Cardiovascular: Other (Regualr with distant tones) GI: Other (Obese/soft/NT/BS+) Extremities: Warm, Perfused, Other (chronic lymphedema changes/Chracot type changes both feet and ankles) Integumentary: Other (wound over left first MTP plantar area dressed - will e xamine with wound care) Result Diagram: 01/18/19 0809 01/18/19 0809 Assessment and Plan Problems: (1) Failure to thrive in adult Status: Chronic Assessment & Plan: It is reported that he has had significant difficulty caring for himself in the home. Social work and TCN have been consulted. They are working on getting him the care he will need either with home health or NH placement. OT/PT have been working with him. (2) Diabetic foot ulcer Status: Chronic Assessment & Plan: He has a chronic wound that has reopened. He has not been wearing his diabetic shoes at home. It does not appear to be acutely infected. Wound care has been following. (3) Type 2 diabetes mellitus Status: Chronic Assessment & Plan: He was on chronic treatment with metformin and Lantus/Humalog. The metformin was discontinued secondary to lactic acidosis, now improved. He is currently on low dose Lantus and sliding scale insulin. Will need to modify Lantus dose today. (4) Diarrhea Status: Acute Assessment & Plan: He has not had any recurrence since admission. (5) Lactic acidosis Assessment & Plan: His metformin has been discontinued. (6) Morbid obesity with BMI of 70 and over, adult Exam Sepsis Risk: No Definite Risk Problem Qualifiers (1) Diabetic foot ulcer: Diabetic foot ulcer location: midfoot Diabetes mellitus type: type 2 Laterality: left Non-pressure ulcer stage: unspecified non-pressure ulcer stage Qualified Codes: E11.621 - Type 2 diabetes mellitus with foot ulcer; L97.429 - Non-pressure chronic ulcer of left heel and midfoot with unspecified severity YOLANDA NATARAJAN MD Jan 21, 2019 07:29
[2019-01-21 07:48] VITALS: BP 140/82
[2019-01-21] MEDS: EUCALYPTUS/MENTHOL LOZ MM PRN (07:55)
[2019-01-21] MEDS: SALINE 0.65% NAS SPR 44 ML BTL PRN (07:57)
[2019-01-21] MEDS: INSULIN HUM LISPRO 100 UN/ML 3 ML VIAL SUBQ PRN ×4 (07:57→21:06)
[2019-01-21 10:42] VITALS: BP 130/90
[2019-01-21] MEDS: LISINOPRIL 20 MG TAB PO SCH (10:46)
[2019-01-21] MEDS: TAMSULOSIN HCL 0.4 MG CAP PO SCH (10:46)
[2019-01-21] MEDS: GABAPENTIN 300 MG CAP PO SCH ×2 (10:46→21:05)
[2019-01-21] MEDS: ASPIRIN 325 MG TAB PO SCH (10:46)
[2019-01-21] MEDS: ALLOPURINOL 300 MG TAB PO SCH (10:47)
[2019-01-21] MEDS: VENLAFAXINE XR 75 MG CAPCR PO SCH (10:47)
[2019-01-21] MEDS: ENOXAPARIN 40 MG/0.4ML SYR SC SCH (10:47)
[2019-01-21] MEDS: guaiFENesin 600 MG TABCR PO SCH ×2 (10:47→21:05)
[2019-01-21] MEDS: hydrALAZINE HCL 25 MG TAB PO SCH ×2 (10:47→21:05)
[2019-01-21] MEDS: INSULIN GLARGINE 100 U/ML 3 ML PEN SUBQ SCH ×2 (10:50→21:06)
[2019-01-21] MEDS: CYCLOBENZAPRINE HCL 10 MG TAB PO PRN (12:20)
[2019-01-21] MEDS: ACETAMINOPHEN 325 MG TAB PO PRN (12:20)
[2019-01-21 15:41] VITALS: BP 140/94
[2019-01-21 20:25] VITALS: BP 159/94
[2019-01-21] MEDS: SIMVASTATIN 20 MG TAB PO SCH (21:05)
[2019-01-21] MEDS: MELATONIN 3 MG TAB PO SCH (21:05)
[2019-01-22] MEDS: ACETAMINOPHEN 325 MG TAB PO PRN (04:18)
[2019-01-22] MEDS: CYCLOBENZAPRINE HCL 10 MG TAB PO PRN (04:18)
[2019-01-22 04:51] VITALS: BP 153/84
[2019-01-22 05:58] LABS: PLATELET COUNT, AUTOMATED 144 K/uL (150-450)
[2019-01-22 07:46] VITALS: BP 158/69
[2019-01-22] MEDS: INSULIN HUM LISPRO 100 UN/ML 3 ML VIAL SUBQ PRN (07:53)
[2019-01-22] MEDS: ASPIRIN 325 MG TAB PO SCH (08:40)
[2019-01-22] MEDS: TAMSULOSIN HCL 0.4 MG CAP PO SCH (08:40)
[2019-01-22] MEDS: ALLOPURINOL 300 MG TAB PO SCH (08:40)
[2019-01-22] MEDS: hydrALAZINE HCL 25 MG TAB PO SCH (08:40)
[2019-01-22] MEDS: GABAPENTIN 300 MG CAP PO SCH (08:40)
[2019-01-22] MEDS: guaiFENesin 600 MG TABCR PO SCH (08:40)
[2019-01-22] MEDS: LISINOPRIL 20 MG TAB PO SCH (08:40)
[2019-01-22] MEDS: ENOXAPARIN 40 MG/0.4ML SYR SC SCH (08:41)
[2019-01-22] MEDS: INSULIN GLARGINE 100 U/ML 3 ML PEN SUBQ SCH (08:41)
[2019-01-22] MEDS: VENLAFAXINE XR 75 MG CAPCR PO SCH (08:46)
[2019-01-22] MEDS ORDERED: LISI20TA29 PO (09:59)
[2019-01-22] MEDS ORDERED: Tamsulosin Hcl PO (09:59)
[2019-01-22] MEDS ORDERED: VENL150C3 PO (09:59)
--- NOTE | 2019-01-22 10:12 | Hospitalist Depart ---
Discharge Summary Reason for Hosp/Final Diag: (1) Failure to thrive in adult Status: Chronic Hospital Course & Plan: It is reported that he has had significant difficulty caring for himself in the home. Social work and TCN were consulted and at this time patient would like to discharge home. OT/PT have been working with him. He does not wish to pursue at this time. He will continue to work with the [facility] for further management of his conditions. (2) Diabetic foot ulcer Status: Chronic Hospital Course & Plan: He has a chronic wound that has reopened. He has not been wearing his diabetic shoes at home. It does not appear to be acutely infected. Wound care has been following. He will need outpatient wound care, which he states he will see [facility] for assistance. (3) Type 2 diabetes mellitus Status: Chronic Hospital Course & Plan: He was on chronic treatment with metformin and Lantus/Humalog. The metformin was discontinued secondary to lactic acidosis, now improved. He is currently on Lantus and sliding scale insulin. He will continue Lantus and his usual sliding scale insulin at home. Stop metformin. (4) Diarrhea Status: Acute Hospital Course & Plan: He has not had any recurrence since admission. (5) Lactic acidosis Hospital Course & Plan: His metformin has been discontinued. (6) Morbid obesity with BMI of 70 and over, adult Departure Latest Vital Signs Vital Signs 01/22/19 01/22/19 00:15 07:46 Temp 98.1 Pulse 83 Resp 22 B/P (MAP) 158/69 (98) Pulse Ox 93 O2 Delivery Nasal Cannula O2 Flow Rate 1.0 FiO2 35.0 Weight (Pounds): 413 Weight (Ounces): 5.0 Result Diagram: 01/22/19 0541 01/22/19 0541 Condition: Improved Discharge: Home, Self Care PT/OT Follow Up For: PT For Strengthening, OT For ADL's, PT Evaluation and Treat, OT Evaluation and Treat, Other Discharge Instructions Home Meds Active Scripts Venlafaxine Hcl (VENLAFAXINE HCL ER) 150 Mg Cap.er.24h, 150 MG PO QDAY, #30 CAP Prov:SHADIJANET Enoc POWERHOUSE MECHANIC 01/22/19 [Tamsulosin Hcl(*) 0.4 Mg Cap] 0.4 MG CAP No Conflict Check, 0.4 MG PO QDAY, #30 CAP Prov:JANET HSU POWERHOUSE MECHANIC 01/22/19 Lisinopril (LISINOPRIL) 20 Mg Tablet, 20 MG PO QDAY, #30 TAB Prov:JANET HSU POWERHOUSE MECHANIC 01/22/19 Insulin Glargine 100 Un/Ml Pen (LANTUS SOLOSTAR PEN) 100 Unit/1 Ml Insuln.pen, 20 UNIT SUBQ QDAY for diabetes, #1 BOX 3 Refills Prov:CHINA NATARAJAN MD 08/29/17 Cyclobenzaprine Hcl (CYCLOBENZAPRINE HCL) 10 Mg Tablet, 10 MG PO BID PRN for MUSCLE SPASMS, #60 TAB Prov:CHINA NATARAJAN MD 08/29/17 Gabapentin (GABAPENTIN) 300 Mg Capsule, 300 MG PO DIRECTED, #120 CAPSULE Take one capsule in the am and one capsule midday. Take 2 capsules at HS. Prov:CHINA NATARAJAN MD 08/29/17 Allopurinol (ZYLOPRIM) 300 Mg Tablet, 300 MG PO QDAY, #0 TAB TAKE 1 TABLET BY MOUTH EVERY DAY Prov:CHINA NATARAJAN MD 01/23/15 Reported Medications Insulin Lispro 100 Un/Ml Vial (HUMALOG 100 U/ML VIAL) 100 Unit/1 Ml Vial, 0 SQ ACHS, VIAL 01/16/19 Cholecalciferol (Vitamin D3) (VITAMIN D3) 1,000 Unit Tablet, 1000 UNIT PO DAILY, TAB 07/11/17 Hydralazine Hcl (HYDRALAZINE HCL) 25 Mg Tablet, 25 MG PO BID, TAB 07/11/17 Simvastatin (SIMVASTATIN) 20 Mg Tablet, 20 MG PO HS, TAB 01/23/15 Aspirin (ASPIRIN) 325 Mg Tablet, 325 MG PO DAILY, TAB 01/23/15 Discontinued Reported Medications Metformin Hcl (METFORMIN HCL) 1,000 Mg Tablet, 1 TAB PO BID, TAB 01/16/19 Citalopram Hydrobromide (CITALOPRAM HBR) 20 Mg Tablet, 20 MG PO QDAY, #5 TAB 07/11/17 Lisinopril (LISINOPRIL) 10 Mg Tablet, 10 MG PO QDAY 01/23/15 Glyburide (GLYBURIDE) 5 Mg Tab, 10 MG PO BID, TAB 07/11/17 Discontinued Scripts Hydrocodone Bit/Acetaminophen (HYDROCODON-ACETAMINOPHEN 5-325) 1 Each Tablet, 1 EACH PO Q4-6H PRN for PAIN, #12 TAKE ONE TABLET BY MOUTH EVERY 4-6 HOURS NEEDED FOR PAIN Prov:MICA COLLINS DO 01/14/19 Ondansetron Hcl (ZOFRAN) 4 Mg Tablet, 4 MG PO Q6H PRN for NAUSEA/VOMITING, #12 Prov:MICA COLLINS DO 01/14/19 Diet: Diabetic Activity: As Tolerated, With Walker Special Instructions: Follow up with [facility] this week. Copies to: [facility] ; Venous Thromboembolism Antithrombotics Is Pt On Any Antithrombotics?: Yes Problem Qualifiers (1) Diabetic foot ulcer: Diabetic foot ulcer location: midfoot Diabetes mellitus type: type 2 Laterality: left Non-pressure ulcer stage: unspecified non-pressure ulcer stage Qualified Codes: E11.621 - Type 2 diabetes mellitus with foot ulcer; L97.429 - Non-pressure chronic ulcer of left heel and midfoot with unspecified severity JANET HSU POWERHOUSE MECHANIC Jan 22, 2019 10:12
--- NOTE | 2019-01-22 14:38 | Medical Nutrition Therapy ---
Nutrition Anthropometrics Height (Inches): 60.00 Height (Calculated Centimeters: [phone] Weight (Pounds): 413 Weight (Calculated Kilograms): 187.475 BMI: 80.7 Hemal Nutrition Score: Excellent Hemal Nutrition Risk Score: 18 Dietary Referral Nutrition Risk Factors: Non-Healing Wound Nutrition Risk Comment: Physical Findings Physical Appearance: Morbidly Obese 40+ Skin Appearance Skin Appearance: Edema Edema Location Modifier: Both Edema Location: Upper Extremity Type of Edema: Degree of Edema: 3+ Gastrointestinal Symptoms GI Symtoms: Change in Bowel Pattern Tube Present: Bowel Sounds: Recent Bowel Pattern: Stool Characteristics: Nutritional Diagnosis Nutritional Risk Acuity 1: Fail to Thrive Nutritional Risk Acuity 2: Abcess/Non-Healing Wound Nutritional Risk Acuity 3: Morbid Obesity Nutritional Risk Acuity 4: Good Appetite Past Medical History: 07/12 Pt has hx of Hypercholesterolemia, T2DM, DM foot ulcer, Charcot joint, Neuropathy,Hyperlipidemia and gout, morbid obesity, DMT2. Nutritional Acuity: 2-Moderate Nutrition Diagnosis: Excessive Food Intake, Inappropriate Carb Intake Nutrition Etiology: Physiological Causes Nutrition Problem/Etiology/Sym: Excessive food and inappropriate carb intake related to physiological causes as evidenced by BMI 80.7, elevated WBG (81-161) and RBG (190). Energy Requirement: 3305 (MSJ 1.1 TEF, 1.2 AF) Adjusted Energy Requirement Re: 1465 (ABW for MSJ, 1.1 TEF, 1.2 AF) Protein Requirement: 94 (0.5 g AA/kg of BW) Fluid Requirement: 1465 (1ml/kcal of adjusted kcal needs) Diet Type: Diabetic Nutrition Intervention: Cont diet as ordered, Check glucose Diet Comment To RSA: Offer high protein foods. Nutrition Monitoring & Eval RD Patient Assessment Time: [address] Assessment Type: RD Assessment Patient Nutrition Acuity: 1-High Follow Up Date: Jan 25, 2019 Nutritional Comment: 01/17: Pt dx with failure to thrive, DMT2, morbid obesity, and diarrhea. Failure to trive dx probably related to morbid obesity (BMI 80) and inability to self care. Pt has hx of Hypercholesterolemia, T2DM, DM foot ulcer, Charcot joint, Neuropathy,Hyperlipidemia and gout, morbid obesity, DMT2. Pt is on enoxaparin (anticoagulant). Pt has decresed sodium (133) levels. Pt has increased potassium (5.3), BUN (36), RBG (190), WBG (81-161), c-reactive protein (1.1), and b-natriuretic peptid (352). Pt is on a diabetetic diet with no intake reported. accounting intern talked to pt, pt expressed that he did not want verbal diabetes education however he was interested in diabetes handout education, internet technology manager left handout. -JJ 01/19/19 pt has a diabetic foot ulcer, and lactic acidosis in addition to FTT, T2DM, and morbid obesity. Pt has 2+ pitting edema in BLE and non-pitting edema in both upper extremities. Whole blood glucose has ranged from 193-228, and random glucose was 209. Pt is on enoxaparin and insulin. Pt is consuming 100% of ADA diet. RD and internet technology manager attempted education of 01/17/19. Pt refused but corporate communications intern left a handout on the diabetic diet with pt. Continue to monitor for adequate intakes and offer high protein foods due to foot ulcer. -AKG 01/22/19 Pt has a diabetic foot ulcer, and lactic acidosis in addition to FTT, T2DM, and morbid obesity. Pt has elevated WBG (198p-251), RBG (237), AST (44) and decreased sodium (144) levels. Pt is consuming 100% of ADA diet. RD and internet technology manager attempted education of 01/17/19. Pt refused but corporate communications intern left a handout on the diabetic diet with pt. Continue to monitor for adequate intakes and offer high protein foods due to foot ulcer. -CARISA MATA Jan 22, 2019 08:45
--- NOTE | 2019-01-22 15:53 | NUR ---
PHYSICAL THERAPY INFORMATION TRANSFER SHEET BED MOBILITY: Modified I/ AE TRANSFERS: Modified indep/SBA GAIT: 140 ' with O2 RW and Standby Assistance CGA Weightbearing Status: STAIRS: 1 with CGA. EXERCISES: Verbalizes Needs: Yes Understands Directions Yes Cooperative: Yes Family Teaching: Yes Physical Therapy Comment: Pt is encouraged to wear custom made diabetic shoes with specialty insole to off load wound at L) great toe. Pt is to don them each morning and wear them throughout the day while in his home, as well as any time outdoors. Pt was provided with a new walker prior to his dismissal from [facility] and should use this for safety with ambulation at home as well. Pt states that he will ask his ex- to assist in clearing pathways again to allow for safer use of the walker and prevent falls. Pt feels as though he needs additional care in the home and was encouraged to hire skilled agency for further services to assist with medication management etc, in addition to the care he was already receiving through [facility] and [facility]. Pt was already receiving wound care management through [facility], which was superb and should be continued. Pt must be participatory in wearing off loading shoes whenever ambulating to allow for further wound care improvement.
== END 2019-01-22 09:59 | disposition home or self-care (01) ==
LOC: ER 18:05 → MED 20:44 → INTOOBSV 20:44
PROVIDERS: ADMIT Internal Medicine; ATTEND Internal Medicine
DX: E11.65 Type 2 diabetes mellitus with hyperglycemia (principal); R62.7 Adult failure to thrive; R06.00 Dyspnea, unspecified; R19.7 Diarrhea, unspecified; E66.01 Morbid (severe) obesity due to excess calories; E11.621 Type 2 diabetes mellitus with foot ulcer; L97.429 Non-pressure chronic ulcer of left heel and midfoot with unspecified severity; E87.2 Acidosis; F41.9 Anxiety disorder, unspecified; F34.1 Dysthymic disorder
CPT/HCPCS: 36415; 36416; 71045; 73630; 81001; 82948; 83605; 83735; 83880; 85025; 85651; 86140; 87040; 93005; 94660; 96361; 96372; 96374; 96375; 97116; 97161; 97166; 97530; 97535; 97597; 99284; G0378; J1650; J1815; J2270; J2405; J7030; J7040; 82040; 82247; 82310; 82374; 82435; 82565; 82947; 84075; 84132; 84155; 84295; 84450; 84460; 84520

== ENCOUNTER → 2019-01-16 | Outpatient (CLI) | payer SELFPAY ==
[~2019-01-16] MED LIST changes: +INSU100V24 SQ; +LISI20TA29 PO; +ONDA4TAB97 PO; +Tamsulosin Hcl PO; +VENL150C3 PO
[2019-01-17 08:17] VITALS: BMI 80.7
== END ==
LOC: AMB 17:04
PROVIDERS: ATTEND Nurse Practitioner
DX: R09.02 Hypoxemia (principal); E11.65 Type 2 diabetes mellitus with hyperglycemia; R06.82 Tachypnea, not elsewhere classified; R19.7 Diarrhea, unspecified; R15.9 Full incontinence of feces; R53.1 Weakness
CPT/HCPCS: A0425; A0427

== ENCOUNTER → 2019-04-26 | Outpatient (CLI) | payer SELFPAY ==
[2019-01-17 08:17] VITALS: BMI 80.7
[~2019-04-26] MED LIST changes: +INSU100V24 SQ; +LISI20TA29 PO; +Tamsulosin Hcl PO; +VENL150C3 PO
== END ==
LOC: LAB 14:01
PROVIDERS: ATTEND Nurse Practitioner Family
DX: R09.02 Hypoxemia (principal); R06.02 Shortness of breath
CPT/HCPCS: 36415; 85379

== ENCOUNTER → 2019-05-14 | Outpatient (CLI) | payer SELFPAY ==
[2019-01-17 08:17] VITALS: BMI 80.7
[~2019-05-14] MED LIST changes: +WARF5TAB23 PO
--- NOTE | 2019-05-15 08:23 | EKG ---
FACILITY: [facility] [place] NAME: CHEPE HUFFMAN : [id number] MR: [id number] V: [id number] EXAM DATE: ORDERING PHYSICIAN: PALAK MARY TECHNOLOGIST: CRAIG Ryan Reason : IRREGULAR HEART BEAT Blood Pressure : / mmHG Vent. Rate : 109 BPM Atrial Rate : 079 BPM P-R Int : 000 ms QRS Dur : 102 ms QT Int : 320 ms P-R-T Axes : 000 109 027 degrees QTc Int : 430 ms Atrial fibrillation with premature ventricular or aberrantly conducted complexes Indeterminate axis Inferior infarct , age undetermined Abnormal ECG No previous ECGs available Referred By: CLEMENCIA MARY Confirmed By:
== END ==
LOC: RESP 15:43
PROVIDERS: ATTEND Surgery
DX: Z02.9 Encounter for administrative examinations, unspecified (principal)

== ENCOUNTER → 2019-05-29 | Outpatient (REF) ==
[2019-01-17 08:17] VITALS: BMI 80.7
== END ==
LOC: US 05-16 00:29
PROVIDERS: ATTEND Nurse Practitioner
DX: I49.9 Cardiac arrhythmia, unspecified (principal)
CPT/HCPCS: 93306; Q9950